=== PATIENT | male | born 1955 | race Caucasian/White ===

== ENCOUNTER 2022-09-18 14:43 | Outpatient (REF) | payer MEDICARE, SELFPAY ==
[2022-09-18 15:11] LABS: Basophils Percent Auto 0.1 % (0-2); Hematocrit 42.6 % (42.0-52.0); Hemoglobin 14.3 g/dl (14.0-18.0); Imm Gran Abs Auto 0.09 X10*3/uL (0.00-0.03); Imm Gran Pct Auto 0.5 % (0.0-0.4); Lymphocytes Absolute Auto 0.3 X10*3/uL (1.2-4.9); Lymphocytes Percent Auto 1.8 % (20-40); MANUAL DIFF FLAG SCAN; Mean Corpuscular HGB Conc 33.6 g/dl (31.0-36.0); Mean Corpuscular Hemoglobin 29.7 pg (27.0-33.0); Mean Corpuscular Volume 88.4 fL (80.0-98.0); Mean Platelet Volume 9.8 fL (9.4-12.4); Monocytes Absolute Auto 1.2 X10*3/uL (0.1-1.2); Monocytes Percent Auto 6.9 % (2-11); Neutrophils Absolute Auto 15.8 x10*3/uL (2.0-8.3); Neutrophils Percent Auto 90.7 % (45-73); Platelet Count 165 X10*3/uL (160-400); Red Blood Count 4.82 X10*6/uL (4.60-5.80); Red Cell Distribution Width 13.9 % (11.0-16.0); SCAN SMEAR FLAG 1; White Blood Count 17.4 X10*3/uL (4.8-10.8)
[2022-09-18 15:37] LABS: SLIDE REVIEW VERIFIED
[2022-09-18 16:03] LABS: Alanine Aminotransferase 58 U/L (0-40); Alkaline Phosphatase 98 U/L (39-117); Anion Gap 15 (12-20); Aspartate Amino Transferase 43 U/L (5-37); Blood Urea Nitrogen 25 mg/dL (9-16); Calcium 8.6 mg/dL (8.4-10.2); Carbon Dioxide 22 mmol/L (22-29); Chloride 103 mmol/L (96-108); Estimated Glomerular Filt Rate 59; Glucose Random 237 mg/dL (60-115); Potassium 4.2 mmol/L (3.3-5.1); Sodium 136 mmol/L (135-145); Total Protein 6.1 g/dL (6.5-8.0)
== END 2022-09-18 14:44 | disposition home or self-care (01) ==
LOC: HO.MMNH3L 14:43
PROVIDERS: Visit Provider Family Medicine
DX: R50.9 Fever, unspecified (principal)
CPT/HCPCS: 36415; 80053; 85025; 87040

== ENCOUNTER 2022-09-18 15:17 | Outpatient (REF) | payer MEDICARE, SELFPAY ==
[2022-09-18 15:58] LABS: Appearance Urine Clear; Color Urine Dark Yellow; Glucose Urine UA Negative (Negative)
[2022-09-18 15:59] LABS: Leukocyte Esterase Urine Moderate (2+) (Negative); Nitrite Urine Negative (Negative); Specific Gravity - Urine 1.025 (1.005-1.025); UMIC TRIGGER UA YES; Urine Blood Trace (Negative); Urine Ketones Trace mg/dL (Negative); Urine Protein 30 (1+) mg/dL (Neg-Trace)
[2022-09-18 16:20] LABS: Bacteria Urine 2+ (None Seen); Hyaline Casts Urine 0-2 /LPF (0-2); RBC Urine 0-2 /HPF (0-2); WBC Urine >50 /HPF (0-5)
== END 2022-09-18 15:18 | disposition home or self-care (01) ==
LOC: HO.LNP 15:17
PROVIDERS: Visit Provider Family Medicine
DX: R50.9 Fever, unspecified (principal)
CPT/HCPCS: 81001; 87086; 87088; 87186

== ENCOUNTER 2022-09-21 07:53 | Outpatient (REF) | payer SELFPAY ==
[2022-09-21 08:00] LABS: MANUAL DIFF FLAG NO
[2022-09-21 08:13] LABS: Basophils Percent Auto 0.4 % (0-2); Eosinophils Absolute Auto 0.2 X10*3/uL (0.0-0.4); Hematocrit 42.1 % (42.0-52.0); Hemoglobin 13.8 g/dl (14.0-18.0); Imm Gran Abs Auto 0.14 X10*3/uL (0.00-0.03); Imm Gran Pct Auto 1.5 % (0.0-0.4); Lymphocytes Absolute Auto 1.2 X10*3/uL (1.2-4.9); Lymphocytes Percent Auto 12.6 % (20-40); Mean Corpuscular HGB Conc 32.8 g/dl (31.0-36.0); Mean Corpuscular Hemoglobin 29.4 pg (27.0-33.0); Mean Corpuscular Volume 89.6 fL (80.0-98.0); Mean Platelet Volume 10.5 fL (9.4-12.4); Monocytes Absolute Auto 1.3 X10*3/uL (0.1-1.2); Monocytes Percent Auto 14.2 % (2-11); Neutrophils Absolute Auto 6.4 x10*3/uL (2.0-8.3); Neutrophils Percent Auto 69.3 % (45-73); Platelet Count 174 X10*3/uL (160-400); Red Cell Distribution Width 13.7 % (11.0-16.0); White Blood Count 9.2 X10*3/uL (4.8-10.8)
[2022-09-21 08:32] LABS: Anion Gap 15 (12-20); Blood Urea Nitrogen 20 mg/dL (9-16); Calcium 8.6 mg/dL (8.4-10.2); Carbon Dioxide 23 mmol/L (22-29); Chloride 106 mmol/L (96-108); Estimated Glomerular Filt Rate > 60; Glucose Random 125 mg/dL (60-115); Potassium 3.8 mmol/L (3.3-5.1); Sodium 140 mmol/L (135-145)
[2022-09-21 08:55] LABS: Vitamin D 25-OH Total 19.4 ng/mL (>30)
== END 2022-09-21 07:54 | disposition home or self-care (01) ==
LOC: HO.MMNH3L 07:53
PROVIDERS: Visit Provider Family Medicine
DX: J44.9 Chronic obstructive pulmonary disease, unspecified (principal); E46 Unspecified protein-calorie malnutrition; E11.9 Type 2 diabetes mellitus without complications
CPT/HCPCS: 36415; 80048; 82306; 85025

== ENCOUNTER 2023-06-04 19:58 | Outpatient (REF) | payer SELFPAY | END 2023-06-04 19:59 | disposition home or self-care (01) | LOC: HO.MMNH3L 19:58 | PROVIDERS: Visit Provider Family Medicine | DX: R50.9 Fever, unspecified (principal) | CPT/HCPCS: 87070 ==

== ENCOUNTER 2023-08-30 06:29 | Outpatient (REF) | payer MEDICARE, MEDICAID, SELFPAY ==
[2023-08-30 06:32] LABS: MANUAL DIFF FLAG NO
[2023-08-30 07:31] LABS: Basophils Percent Auto 0.4 % (0-2); Eosinophils Absolute Auto 0.4 X10*3/uL (0.0-0.4); Eosinophils Percent Auto 4.2 % (0-4); Hematocrit 42.7 % (42.0-52.0); Hemoglobin 14.2 g/dl (14.0-18.0); Imm Gran Abs Auto 0.05 X10*3/uL (0.00-0.03); Imm Gran Pct Auto 0.5 % (0.0-0.4); Lymphocytes Absolute Auto 1.7 X10*3/uL (1.2-4.9); Lymphocytes Percent Auto 17.4 % (20-40); Mean Corpuscular HGB Conc 33.3 g/dl (31.0-36.0); Mean Corpuscular Hemoglobin 30.1 pg (27.0-33.0); Mean Corpuscular Volume 90.5 fL (80.0-98.0); Mean Platelet Volume 9.9 fL (9.4-12.4); Monocytes Absolute Auto 0.8 X10*3/uL (0.1-1.2); Monocytes Percent Auto 8.7 % (2-11); Neutrophils Absolute Auto 6.5 x10*3/uL (2.0-8.3); Neutrophils Percent Auto 68.8 % (45-73); Platelet Count 181 X10*3/uL (160-400); Red Blood Count 4.72 X10*6/uL (4.60-5.80); Red Cell Distribution Width 12.7 % (11.0-16.0); White Blood Count 9.5 X10*3/uL (4.8-10.8)
[2023-08-30 07:44] LABS: Alanine Aminotransferase 12 U/L (0-40); Albumin Level 3.2 g/dL (3.5-5.0); Alkaline Phosphatase 60 U/L (39-117); Anion Gap 11 (12-20); Aspartate Amino Transferase 15 U/L (5-37); Bilirubin Total 0.5 mg/dL (0.0-1.0); Blood Urea Nitrogen 14 mg/dL (9-16); Carbon Dioxide 23 mmol/L (22-29); Chloride 109 mmol/L (96-108); Estimated Glomerular Filt Rate > 60; Glucose Random 93 mg/dL (60-115); Potassium 3.9 mmol/L (3.3-5.1); Sodium 139 mmol/L (135-145); Total Protein 6.3 g/dL (6.5-8.0)
[2023-08-30 07:49] LABS: Estimated Average Glucose 103 mg/dL; Hemoglobin A1c % 5.2 % (<6.0)
[2023-08-30 07:53] LABS: Thyroid Stimulating Hormone 1.29 uIU/mL (0.32-4.0)
== END 2023-08-30 06:30 | disposition home or self-care (01) ==
LOC: HO.MMNH3L 06:29
PROVIDERS: Visit Provider Family Medicine
DX: I10 Essential (primary) hypertension (principal); N40.0 Benign prostatic hyperplasia without lower urinary tract symptoms; E78.5 Hyperlipidemia, unspecified; E11.9 Type 2 diabetes mellitus without complications
CPT/HCPCS: 36415; 80053; 83036; 84443; 85025

== ENCOUNTER 2023-09-20 09:32 | Day surgery (SDC) | payer MEDICARE, MEDICAID, SELFPAY ==
--- NOTE | ~2023-09-20 | FL_ITS ---
Fluoroscopic lumbar puncture Indication: Gait instability. Neurologist requests large volume lumbar puncture Risks and benefits and possible complications were discussed with the patient and the consent form was signed. Patient was placed prone on the fluoroscopy table. The back was prepped and draped in routine sterile fashion. Betadine was used as a skin antiseptic. Utilizing fluoroscopic guidance, the L2-3 level was accessed with a 22 gauge Ollie spinal needle and clear CSF fluid obtained. Opening pressure was unable to be obtained due to the low pressure. With Valsalva movements, the pressure would increase to 4 cm H2O and immediately drop. 3cc of fluid was sent for analysis. . Additional fluid could not be removed due to patient's discomfort lying prone or in the left lateral decubitus position. The needle was removed without immediate complications. Total fluoroscopy time: 1.0 min FL/FL guided lumbar puncture LP Impression: Fluoroscopic lumbar puncture. Opening pressure could not be obtained due to low pressure. On the lateral fluoroscopic view of the spine, there appears to be a high-grade stenosis at the current L2-L3 level and/or higher at the L1-L2 level. An MRI of the lumbar spine could be considered for further evaluation. This procedure was performed by Dajuan Azevedo PA-C and supervised by Dr. Aden.
[2023-09-20 09:51] VITALS: BMI 34.9
[2023-09-20 10:13] LABS: INTERNATIONAL NORM RATIO 1.1 (0.9-1.1); Prothrombin Time 13.5 SEC (11.1-13.3)
[2023-09-20 10:16] LABS: Partial Thromboplastin Time 28.6 SEC (26.0-36.4)
[2023-09-20 10:23] LABS: Glucose, Whole Blood 177 mg/dL (60-115)
[2023-09-20 12:11] VITALS: BP 134/78; PULSE 60; RESP 18; TEMP 36.1; O2SAT 97
[2023-09-20] MEDS: Acetaminophen 325 MG TABLET 650 MG PO (12:29)
[2023-09-20 12:41] VITALS: BP 128/73; PULSE 60; RESP 18; O2SAT 99
[2023-09-20 12:44] LABS: CSF Appearance Clear, Colorless; CSF Tube # 2
[2023-09-20 13:10] LABS: Glucose CSF 63 mg/dL
[2023-09-20 13:11] VITALS: BP 119/63; PULSE 62; RESP 18; O2SAT 99
[2023-09-20 13:39] LABS: Appearance CSF CLEAR; CSF Tube # 2; Color CSF COLORLESS
[2023-09-20 13:46] LABS: Red Blood Cell CSF 13 MM*3; White Blood Cell CSF 10 MM*3
[2023-09-20 13:48] LABS: CSF Monos 13 %; Lymphocytes CSF 87 %
== END 2023-09-20 14:02 | disposition home or self-care (01) ==
PROVIDERS: Physician Assistant Surgical; Psychiatry & Neurology Neurology; PCP Family Medicine; Visit Provider Student in an Organized Health Care Education/Training Program
PROC: 009U3ZZ Drainage of Spinal Canal, Percutaneous Approach (ICD-10-PCS; CPT 62270; principal; 2023-09-20 11:00)
DX: G91.2 (Idiopathic) normal pressure hydrocephalus (principal); R26.89 Other abnormalities of gait and mobility; I10 Essential (primary) hypertension; E11.9 Type 2 diabetes mellitus without complications; G62.9 Polyneuropathy, unspecified; M19.90 Unspecified osteoarthritis, unspecified site; Z79.84 Long term (current) use of oral hypoglycemic drugs; Z79.899 Other long term (current) drug therapy; Z98.890 Other specified postprocedural states
CPT/HCPCS: 36415; 62328; 82945; 82947; 84157; 85610; 85730; 87015; 87070; 87205; 89051

== ENCOUNTER → 2023-09-20 11:00 | Outpatient (BNV) | payer MEDICARE, MEDICAID, SELFPAY | PROVIDERS: PCP Family Medicine; Visit Provider Radiology Diagnostic Radiology | DX: R27.0 Ataxia, unspecified (principal) | CPT/HCPCS: 62328 ==

== ENCOUNTER 2023-11-11 13:43 | Outpatient (REF) | payer MEDICARE, MEDICAID, SELFPAY ==
--- NOTE | ~2023-11-11 | MR_ITS ---
EXAMINATION: MR LUMBAR SPINE WITHOUT AND WITH CONTRAST CLINICAL INFORMATION: Spinal stenosis. COMPARISON: None available. TECHNIQUE: MRI of the lumbar spine was obtained using routine sequences without and following the administration of 10 mL of Gadavist intravenous contrast. FINDINGS: Mild left convex curvature of the lumbar spine. Partial straightening of the normal lumbar lordosis. Mild degenerative stepwise retrolisthesis of L2-S1. Advanced degenerative disc disease at L3-L4 and L4-L5. Moderate degenerative disc disease from L1-L3 and at L5-S1. Associated mixed Modic type discogenic and plate changes including mild Modic type I discogenic edema from L4-S1. No additional suspicious marrow edema. Schmorl's node in the inferior endplate of L1. Otherwise, the vertebral body heights are largely maintained. The conus medullaris terminates at the level of L1. The distal spinal cord is normal in appearance. No abnormal contrast enhancement. Changes of right-sided L3-L4 hemilaminectomy. Moderate subcutaneous edema within the posterior soft tissues the back below the level of T12. No additional significant abnormalities of the paraspinal musculature. Limited evaluation of the intra-abdominal structures without significant abnormalities. The abdominal aorta is of normal contour and caliber. AXIAL SPINAL LEVELS: L1-L2: Shallow diffuse disc bulge. There is mild bilateral facet joint arthropathy. There is no neural foraminal stenosis. There is no spinal canal stenosis. L2-L3: Mild diffuse disc bulge with posterior osseous ridging. There is moderate bilateral facet joint arthropathy. There is mild left and no right neural foraminal stenosis. There is no spinal canal stenosis. L3-L4: Moderate diffuse disc bulge with posterior osseous ridging and superimposed central disc extrusion with inferior migration. There is moderate bilateral facet joint arthropathy. There is moderate bilateral neural foraminal stenosis. Posterior decompression. There is stenosis of the subarticular zones with no overt spinal canal stenosis centrally. L4-L5: Mild diffuse disc bulge with posterior osseous ridging and superimposed right subarticular disc protrusion. There is severe right and moderate left facet joint arthropathy. There is moderate to severe bilateral neural foraminal stenosis. There is stenosis of the right worse than left subarticular zones with no overt spinal canal stenosis centrally. L5-S1: Moderate diffuse disc bulge with posterior osseous ridging and superimposed left subarticular/foraminal disc protrusion. There is moderate bilateral facet joint arthropathy. There is severe left worse than right neural foraminal stenosis. There is narrowing of the subarticular zones with no overt spinal canal stenosis centrally. MR/MR lumbar spine wo/w con IMPRESSION: Moderate multilevel degenerative spondyloarthropathy of the lumbar spine as described in detail above. Most notably, there are narrowing/stenoses of the subarticular zones and moderate to severe neural foraminal stenoses from L3-S1. No overt spinal canal stenosis centrally.
[2023-11-11] MEDS: gadobutroL 10 ML VIAL IVPUSH (15:00)
== END 2023-11-11 13:44 | disposition home or self-care (01) ==
LOC: HO.MRI 13:43
PROVIDERS: Visit Provider Psychiatry & Neurology Neurology
DX: M48.061 Spinal stenosis, lumbar region without neurogenic claudication (principal)
CPT/HCPCS: 72158; A9585

== ENCOUNTER 2023-12-15 12:40 | Outpatient (REF) | payer MEDICARE, MEDICAID, SELFPAY ==
[2023-12-15 14:33] LABS: Erythrocyte Sedimentation Rate 10 MM/HR (0-15)
[2023-12-16 07:54] LABS: Syphilis Screen Nonreactive (Nonreactive)
[2023-12-16 17:13] LABS: IgA 321 mg/dL (70-320); IgG 1433 mg/dL (600-1540); IgM 136 mg/dL (50-300)
[2023-12-16 19:23] LABS: Lyme Abs Screen <0.90 index
== END 2023-12-15 12:41 | disposition home or self-care (01) ==
LOC: HO.LAB 12:40
PROVIDERS: Visit Provider Psychiatry & Neurology Neurology
DX: G62.9 Polyneuropathy, unspecified (principal)
CPT/HCPCS: 36415; 82784; 85652; 86617; 86618; 86780

== ENCOUNTER 2024-06-15 05:51 | Outpatient (REF) | payer MEDICARE, MEDICAID, SELFPAY ==
[2024-06-15 05:55] LABS: MANUAL DIFF FLAG NO
[2024-06-15 06:19] LABS: Basophils Percent Auto 0.3 % (0-2); Eosinophils Absolute Auto 0.1 X10*3/uL (0.0-0.4); Eosinophils Percent Auto 0.8 % (0-4); Hematocrit 38.3 % (42.0-52.0); Hemoglobin 13.5 g/dl (14.0-18.0); Imm Gran Abs Auto 0.16 X10*3/uL (0.00-0.03); Imm Gran Pct Auto 1.6 % (0.0-0.4); Lymphocytes Absolute Auto 1.9 X10*3/uL (1.2-4.9); Lymphocytes Percent Auto 19.2 % (20-40); Mean Corpuscular HGB Conc 35.2 g/dl (31.0-36.0); Mean Corpuscular Hemoglobin 31.8 pg (27.0-33.0); Mean Corpuscular Volume 90.3 fL (80.0-98.0); Mean Platelet Volume 9.1 fL (9.4-12.4); Monocytes Absolute Auto 0.8 X10*3/uL (0.1-1.2); Monocytes Percent Auto 8.3 % (2-11); Neutrophils Percent Auto 69.8 % (45-73); Platelet Count 157 X10*3/uL (160-400); Red Blood Count 4.24 X10*6/uL (4.60-5.80); Red Cell Distribution Width 13.2 % (11.0-16.0)
[2024-06-15 06:41] LABS: Anion Gap 11 (12-20); Blood Urea Nitrogen 16 mg/dL (9-16); Calcium 9.3 mg/dL (8.4-10.2); Carbon Dioxide 26 mmol/L (22-29); Chloride 105 mmol/L (96-108); Estimated Glomerular Filt Rate > 60; Glucose Random 127 mg/dL (60-115); Sodium 138 mmol/L (135-145)
[2024-06-15 07:28] LABS: Estimated Average Glucose 169 mg/dL; Hemoglobin A1c % 7.5 % (<6.0)
== END 2024-06-15 05:52 | disposition home or self-care (01) ==
LOC: HO.MMNH3L 05:51
PROVIDERS: Visit Provider Family Medicine
DX: Z13.1 Encounter for screening for diabetes mellitus (principal); J44.9 Chronic obstructive pulmonary disease, unspecified
CPT/HCPCS: 36415; 80048; 83036; 85025

== ENCOUNTER 2024-07-28 12:30 | Outpatient (RCR) | payer MEDICARE, MEDICAID, SELFPAY ==
[2024-07-24] VITALS (11 sets, daily range): BP systolic 107–123; BP diastolic 63–77; PULSE 82–105; RESP 18–20; TEMP 36.9; O2SAT 98
[2024-07-24] MEDS: Immune Globulin 10% Gammagard 200 ML IV ×2 (08:44→10:15)
--- NOTE | 2024-07-24 08:52 | HO.INF ---
At 8:40 am - [facility]. SPOKE WITH HEATHER- NURSE- INFORMED PATIENT WAS GOING TO BE HERE APPROX- 3HRS AND WE NEEDED COPIES OF HIS DIET, MEDICATIONS AND ANY BLOOD SUGARS TO BE DONE. HEATHER STATES WILL FAX INFORMATION OVER.
--- NOTE | 2024-07-24 12:31 | HO.INF ---
12:10PM- [facility] ARRIVED TO BRING PATIENT TO [facility]. MULTIPLE CALLS TO [facility] TO GIVE REPORT NO ANSWER AT THIS TIME.
--- NOTE | 2024-07-24 13:11 | HO.INF ---
13:10PM- RETURN CALL FROM HEATHER FROM [facility]- REPORT GIVEN. SHE STATED PATIENT HAS SECURED A RIDE FOR THE NEXT 4 DAYS.
[2024-07-25] VITALS (8 sets, daily range): BP systolic 111–139; BP diastolic 55–82; PULSE 63–74; RESP 18–20; TEMP 36.3; O2SAT 98
[2024-07-25] MEDS: Immune Globulin 10% Gammagard 200 ML IV ×2 (08:20→09:48)
--- NOTE | 2024-07-25 13:10 | HO.INF ---
pt is still waiting for transportation to arrive to take him back to [facility]. many, multiple calls have been made to [facility] and spoken with multiple nurses and director including poonam about transportation back. we have been placed on hold several times, have been told they will call back with transportation information. no calls ever received. pt infusion has been completed since approx 1040am and has been waiting patiently. [facility] called once again and we were told pt has a black pickler arranged for 1300. it is now 1310 and no sign of any black pickler.
--- NOTE | 2024-07-25 13:32 | HO.INF ---
spoke with rhett at [facility]. states pt is to be picked up shortly . no specific time given. pt made aware and has remained calm and understanding.
--- NOTE | 2024-07-25 14:31 | HO.INF ---
pt was picked up by [facility]
[2024-07-26] VITALS (7 sets, daily range): BP systolic 94–109; BP diastolic 56–65; PULSE 65–73; RESP 20; TEMP 36.6; O2SAT 97
[2024-07-26] MEDS: Immune Globulin 10% Gammagard 200 ML IV ×2 (08:10→09:39)
[2024-07-27] VITALS (11 sets, daily range): BP systolic 100–130; BP diastolic 59–82; PULSE 71–101; RESP 14–20; TEMP 36.4; O2SAT 98
[2024-07-27] MEDS: Immune Globulin 10% Gammagard 200 ML IV ×2 (08:05→09:36)
[2024-07-28 12:30] VITALS: BP 105/75; PULSE 84; RESP 18; TEMP 37; O2SAT 96
[2024-07-28] MEDS: Immune Globulin 10% Gammagard 200 ML IV ×2 (12:40→14:06)
[2024-07-28 13:11] VITALS: BP 116/74; PULSE 91
[2024-07-28 13:25] VITALS: BP 115/72; PULSE 86; RESP 20
[2024-07-28 13:40] VITALS: BP 111/75; PULSE 75; RESP 20
[2024-07-28 14:10] VITALS: BP 124/76; PULSE 82
== END 2024-07-28 15:12 | disposition skilled nursing facility (03) ==
LOC: HO.INF 12:30
PROVIDERS: Visit Provider Psychiatry & Neurology Neurology
DX: G61.81 Chronic inflammatory demyelinating polyneuritis (principal)
CPT/HCPCS: 96365; 96366; J1569

== ENCOUNTER 2024-12-14 08:16 | Outpatient (REF) | payer MEDICARE, MEDICAID, SELFPAY ==
[2024-12-14 10:28] LABS: CDiff Gene PCR NEGATIVE (Negative)
== END 2024-12-14 08:17 | disposition home or self-care (01) ==
LOC: HO.MMNH3L 08:16
PROVIDERS: Visit Provider Family Medicine
DX: R19.5 Other fecal abnormalities (principal)
CPT/HCPCS: 87493

== ENCOUNTER 2024-12-15 05:43 | Outpatient (REF) | payer MEDICARE, MEDICAID, SELFPAY ==
[2024-12-15 06:26] LABS: Alanine Aminotransferase < 6 U/L (0-40); Albumin Level 2.6 g/dL (3.5-5.0); Alkaline Phosphatase 55 U/L (39-117); Anion Gap 12 (12-20); Aspartate Amino Transferase 18 U/L (5-37); Bilirubin Total 0.5 mg/dL (0.0-1.0); Blood Urea Nitrogen 13 mg/dL (9-16); Calcium 8.7 mg/dL (8.4-10.2); Carbon Dioxide 17 mmol/L (22-29); Chloride 112 mmol/L (96-108); Estimated Glomerular Filt Rate > 60; Glucose Random 78 mg/dL (60-115); Potassium 3.3 mmol/L (3.3-5.1); Sodium 138 mmol/L (135-145); Total Protein 6.2 g/dL (6.5-8.0)
== END 2024-12-15 05:44 | disposition home or self-care (01) ==
LOC: HO.MMNH3L 05:43
PROVIDERS: Visit Provider Family Medicine
DX: E86.0 Dehydration (principal)
CPT/HCPCS: 36415; 80053

== ENCOUNTER 2024-12-16 11:46 | Outpatient (REF) | payer MEDICARE, MEDICAID, SELFPAY ==
[2024-12-16 13:33] LABS: Adenovirus PCR Not Detected (Not Detect.); Bordetella parapertussis PCR Not Detected (Not Detect.); Bordetella pertussis PCR Not Detected (Not Detect.); Chlamydia pneumoniae PCR Not Detected (Not Detect.); Coronavirus 229E PCR Not Detected (Not Detect.); Coronavirus HKU1 PCR Not Detected (Not Detect.); Coronavirus NL63 PCR Not Detected (Not Detect.); Coronavirus OC43 PCR Not Detected (Not Detect.); Human metapneumovirus PCR Not Detected (Not Detect.); Influenza A PCR Not Detected (Not Detect.); Influenza B PCR Not Detected (Not Detect.); Mycoplasma pneumoniae PCR Not Detected (Not Detect.); Parainfluenza 1 PCR Not Detected (Not Detect.); Parainfluenza 2 PCR Not Detected (Not Detect.); Parainfluenza 3 PCR Not Detected (Not Detect.); Parainfluenza 4 PCR Not Detected (Not Detect.); RSV PCR Not Detected (Not Detect.); Rhino/Enterovirus PCR Not Detected (Not Detect.)
[2024-12-16 14:56] LABS: SARS-CoV-2 PCR Not Detected (Not Detect.)
== END 2024-12-16 11:47 | disposition home or self-care (01) ==
LOC: HO.MMNH3L 11:46
PROVIDERS: Visit Provider Hospitalist
DX: Z13.89 Encounter for screening for other disorder (principal); Z86.16 Personal history of COVID-19
CPT/HCPCS: 87633

== ENCOUNTER 2024-12-25 06:15 | Outpatient (REF) | payer MEDICARE, MEDICAID, SELFPAY ==
[2024-12-25 06:17] LABS: MANUAL DIFF FLAG NO
[2024-12-25 06:44] LABS: Basophils Absolute Auto 0.1 X10*3/uL (0.0-0.2); Basophils Percent Auto 0.4 % (0-2); Eosinophils Absolute Auto 0.2 X10*3/uL (0.0-0.4); Eosinophils Percent Auto 1.5 % (0-4); Hematocrit 39.2 % (42.0-52.0); Imm Gran Abs Auto 0.25 X10*3/uL (0.00-0.03); Imm Gran Pct Auto 1.6 % (0.0-0.4); Lymphocytes Absolute Auto 1.7 X10*3/uL (1.2-4.9); Lymphocytes Percent Auto 11.1 % (20-40); Mean Corpuscular HGB Conc 33.2 g/dl (31.0-36.0); Mean Corpuscular Volume 90.5 fL (80.0-98.0); Mean Platelet Volume 8.6 fL (9.4-12.4); Monocytes Absolute Auto 1.2 X10*3/uL (0.1-1.2); Monocytes Percent Auto 7.6 % (2-11); Neutrophils Absolute Auto 11.8 x10*3/uL (2.0-8.3); Neutrophils Percent Auto 77.8 % (45-73); Platelet Count 321 X10*3/uL (160-400); Red Blood Count 4.33 X10*6/uL (4.60-5.80); Red Cell Distribution Width 15.1 % (11.0-16.0); White Blood Count 15.2 X10*3/uL (4.8-10.8)
[2024-12-25 07:11] LABS: Estimated Average Glucose 97 mg/dL; Hemoglobin A1C 105.6322 umol/L
[2024-12-25 07:28] LABS: Alanine Aminotransferase 6 U/L (0-40); Albumin Level 2.6 g/dL (3.5-5.0); Alkaline Phosphatase 50 U/L (39-117); Anion Gap 11 (12-20); Aspartate Amino Transferase 19 U/L (5-37); Bilirubin Total 0.4 mg/dL (0.0-1.0); Blood Urea Nitrogen 12 mg/dL (9-16); Calcium 8.8 mg/dL (8.4-10.2); Carbon Dioxide 21 mmol/L (22-29); Chloride 113 mmol/L (96-108); Estimated Glomerular Filt Rate > 60; Glucose Random 67 mg/dL (60-115); Potassium 3.3 mmol/L (3.3-5.1); Sodium 142 mmol/L (135-145); Total Protein 5.8 g/dL (6.5-8.0)
== END 2024-12-25 06:16 | disposition home or self-care (01) ==
LOC: HO.MMNH3L 06:15
PROVIDERS: Visit Provider Internal Medicine
DX: E11.9 Type 2 diabetes mellitus without complications (principal)
CPT/HCPCS: 36415; 80053; 83036; 84443; 85025

== ENCOUNTER 2025-05-30 05:29 | Outpatient (REF) | payer MEDICARE, MEDICAID, SELFPAY ==
[2025-05-30 05:31] LABS: MANUAL DIFF FLAG NO
[2025-05-30 05:59] LABS: Hematocrit 34.5 % (42.0-52.0); Hemoglobin 11.8 g/dl (14.0-18.0); Imm Gran Abs Auto 0.05 X10*3/uL (0.00-0.03); Imm Gran Pct Auto 0.5 % (0.0-0.4); Lymphocytes Absolute Auto 1.7 X10*3/uL (1.2-4.9); Mean Corpuscular HGB Conc 34.2 g/dl (31.0-36.0); Mean Corpuscular Hemoglobin 30.8 pg (27.0-33.0); Mean Corpuscular Volume 90.1 fL (80.0-98.0); NRBC Abs Auto 0.000 X10*3/uL (0.0-0.012); NRBC Pct Auto 0.0 /100WBC (0.0-0.2); Platelet Count 203 X10*3/uL (160-400); Red Blood Count 3.83 X10*6/uL (4.60-5.80); White Blood Count 10.8 X10*3/uL (4.8-10.8)
[2025-05-30 06:10] LABS: Alanine Aminotransferase 9 U/L (0-40); Albumin Level 3.1 g/dL (3.5-5.0); Alkaline Phosphatase 55 U/L (39-117); Anion Gap 10 (12-20); Aspartate Amino Transferase 25 U/L (5-37); Blood Urea Nitrogen 14 mg/dL (9-16); Calcium 8.7 mg/dL (8.4-10.2); Carbon Dioxide 24 mmol/L (22-29); Chloride 112 mmol/L (96-108); Estimated Glomerular Filt Rate > 60; Potassium 3.9 mmol/L (3.3-5.1); Sodium 142 mmol/L (135-145); Total Protein 5.8 g/dL (6.5-8.0)
[2025-05-30 06:26] LABS: Thyroid Stimulating Hormone 1.52 uIU/mL (0.32-4.0)
[2025-05-30 07:10] LABS: Hemoglobin A1C 92.1015 umol/L; Total Hemoglobin (HGBA1C) 3174.7690 umol/L
== END 2025-05-30 05:30 | disposition home or self-care (01) ==
LOC: HO.MMNH3L 05:29
PROVIDERS: Visit Provider Student in an Organized Health Care Education/Training Program
DX: I10 Essential (primary) hypertension (principal); E11.9 Type 2 diabetes mellitus without complications
CPT/HCPCS: 36415; 80053; 83036; 84443; 85025

== ENCOUNTER 2025-06-23 11:17 | Outpatient (REF) | payer MEDICARE, MEDICAID, SELFPAY ==
--- OUTSIDE RECORDS SUMMARY | 2025-06-23 11:28 | XMS_ITS | Encounter Summary ---
Author Organization [facility] Address [address] [place] [address] Phone Care Team Providers Care Esl Tutor Name Role Phone Gabriella Polo MD Primary Care Provider Devin Balbuena DO Unavailable [phone] Maria M Kaur SPEECH AND LANGUAGE SPECIALIST Unavailable [phone] Encounter Details Date Type Department Care Team (Late st Contact Info) Description 07/07/2021 Procedure Pass [facility] Endoscopy Admitting Dept Virtual Department [address] [place] [address] Social History Tobacco Use Types Packs/Day Years Used Date Smoking Tobacco: Never Smokeless Tobacco: Never Alcohol Use Standard Drinks/Week Comments Yes 0 (1 standard drink = 0.6 oz pur e alcohol) Sex and Gender Information Value Date Recorded Sex Assigned at Male 12/29/2018 9:53 PM EST Legal Sex Male 9:38 PM EST Gender Identity Male 12/29/2018 9:53 PM EST Sexual Orientation Straight 12/29/2018 9: 53 PM EST documented as of this encounter Plan of Treatment Not on file documented as of this encounter Visit Diagnoses Not on filedocumented in this encounter Care Teams Esl Tutor Relationship Specialty Start Date End Date Gabriella Polo MD [address] [place] [address] PCP - General 12/29/18 Devin Balbuena DO [address] [place] [address] [email or web address] Primary Oncologist Hematology and Oncology 05/12/21 Maria M Kaur FNP [address] [place] [address] [email or web address] Nurse Practitioner Hematology and Oncology 05/23/21 documented as of this encounter Additional Source Comments The information contained in this document represents components of the legal health record. It is not the complete legal health record.[facility]
--- OUTSIDE RECORDS SUMMARY | 2025-06-23 11:28 | XMS_ITS | Encounter Summary ---
Author Organization [facility] Address [address] [place] [address] [place] [address] Phone Care Team Providers Care Compliance Testing Analyst Name Role Phone Gabriella Polo MD Primary Care Provider Devin Balbuena DO Unavailable Maria M Kaur OPERATOR SPECIALIST COMMUNICATIONS Unavailable [phone] Encounter Details Date Type Department Care Team (Latest Contact Info) Description 04/04/2021 Transcribe Orders Virtual Department [address] [place] [phone] Kevin Russell MD [address] [place] [address], [address] [place] [address] [email or web address] Cerebrovascular accident (CVA), unspecified mechanism (Primary Dx); Chest pain, unspecified type Social History Tobacco Use Types Packs/Day Years [...] on file documented as of this encounter Results * ECG 12-LEAD (04/10/2021 11:38 AM EDT) Ventricular Rate EKG/MIN 86 BPM [facility] Atrial Rate 86 BPM [facility] IA Interval 138 ms [facility] QRS Duration 66 ms [facility] QT Interval 368 ms [facility] QTC Interval 440 ms [facility] P [place] 40 degrees [facility] R Wave [place] -4 degrees [facility] T Wave [place] 98 degrees [facility] 04/10/2021 11:3 8 AM EDT 04/10/2021 4:02 PM EDT Narrative [facility] - 04/10/2021 4:02 PM EDT Sinus rhythm with frequent Premature ventricular complexes No previous ECGs available Confirmed by HELGA ALVARENGA MD ([id number]) on 04/10/2021 4:02:51 PM us Kevin Russell MD ECG ORDERABLES Final Result [facility] documented in this encounter Visit Diagnoses Diagnosis Cerebrovascular accident (CVA), unspecified mechanism- Primary Chest pain, unspecified type Cerebrovascular accident (CVA), unspecified mechanism Chest pain, unspecified type documented in this encounter Care Teams Compliance Testing Analyst Relationship Specialty Start Date End Date Gabriella Polo MD [address] [place] [address] PCP - General 12/29/18 Devin Balbuena DO [address] [place] [address] [email or web address] Primary Oncologist Hematology and Oncology 05/12/21 Maria M Kaur FNP [address] [place] [address] [email or web address] Nurse Practitioner Hematology and Oncology 05/23/21 documented as of this encounter Additional Source Comments The information contained in this document represents components of the legal health record. It is not the complete legal health record.[facility]
--- OUTSIDE RECORDS SUMMARY | 2025-06-23 11:28 | XMS_ITS | Encounter Summary ---
Author Organization [facility] Address [address] [facility] [address] [place] [address] Phone Care Team Providers Care Ankle Patch Molder Name Role Phone Gabriella Polo MD Primary Care Provider Devin Balbuena DO Unavailable Maria M Kaur CAN REFORMING MACHINE OPERATOR Unavailable Encounter Details Date Type Department Care Team (Late st Contact Info) Description 06/18/2021 Transcribe Orders [facility] [address] [place] [phone] Devin Balbuena DO [address] [place] [address] [email or web address] Social History Tobacco Use Types Packs/Day Years [...] on filedocumented in this encounter Care Teams Ankle Patch Molder Relationship Specialty Start Date End Date Gabriella Polo MD [address] [place] [address] PCP - General 12/29/18 Devin Balbuena DO [address] [place] [address] [email or web address] Primary Oncologist Hematology and Oncology 05/12/21 Maria M Kaur FNP [address] [place] [address] [email or web address] Nurse Practitioner Hematology and Oncology 05/23/21 documented as of this encounter Additional Source Comments The information contained in this document represents components of the legal health record. It is not the complete legal health record.[facility]
--- OUTSIDE RECORDS SUMMARY | 2025-06-23 11:28 | XMS_ITS | Encounter Summary ---
Author Organization [facility] Address [address] [address] Phone Care Team Providers Care Manufacturing Analyst Name Role Phone Gabriella Polo MD Primary Care Provider Devin Balbuena DO Unavailable Maria M Kaur MEDICAL TECHNOLOGIST MICROBIOLOGY Unavailable Encounter Details Date Type Department Care Team (Late st Contact Info) Description 09/29/2021 Transcribe Orders [facility] [address] [place] [address] Rashid Fallon MD [address] [place] [address] [email or web address] Social History Tobacco Use Types Packs/Day Years [...] on filedocumented in this encounter Care Teams Manufacturing Analyst Relationship Specialty Start Date End Date Gabriella Polo MD [address] [place] [address] PCP - General 12/29/18 Devin Balbuena DO [address] [place] [address] [email or web address] Primary Oncologist Hematology and Oncology 05/12/21 Maria M Kaur FNP [address] [place] [address] [email or web address] Nurse Practitioner Hematology and Oncology 05/23/21 documented as of this encounter Additional Source Comments The information contained in this document represents components of the legal health record. It is not the complete legal health record.[facility]
--- OUTSIDE RECORDS SUMMARY | 2025-06-23 11:28 | XMS_ITS | Encounter Summary ---
Author Organization [facility] Address [address] [facility] [address] [place] [address] Phone Care Team Providers Care Edi Manager Name Role Phone Gabriella Polo MD Primary Care Provider Devin Balbuena DO Unavailable [phone] Maria M Kaur STEEL BARREL REAMER Unavailable [phone] Encounter Details Date Type Department Care Team (Late st Contact Info) Description 07/04/2021 Procedure Pass [facility] Ct Scan - [address] [address] Social History Tobacco Use Types Packs/Day Years [...] PM EST documented as of this encounter Functional Status * Calculated C-SSRS Risk Score (Lifetime/Recent) Answer Date of Assessment Author No Risk Indicated 07/04/2021 3:51 PM EDT Maranda Law RN * [place] Suicide Severity Rating Scale (Screener/Recent Self-Report) Question Answer Date of Assessment Author 1. Wish to be (Past 1 Month) No 07/04/2021 3:51 PM LEILANIT Praveena Nieves RN 2. Non-Specific Active Suicidal Thoughts (Past 1 Month) No 07/04/2021 3:51 PM Praveena Benavides RN 6. Suicidal Behavior (Lifetime) No 07/04/2021 3:51 PM Praveena Benavides RN documented as of this encounter Plan of Treatment Not on file documented as of this encounter Visit Diagnoses Not on filedocumented in this encounter Care Teams Edi Manager Relationship Specialty Start Date End Date Gabriella Polo MD [address] [place] [address] PCP - General 12/29/18 Devin Balbuena DO [address] [place] [address] [email or web address] Primary Oncologist Hematology and Oncology 05/12/21 Maria M Kaur FNP [address] [place] [phone] [email or web address] Nurse Practitioner Hematology and Oncology 05/23/21 documented as of this encounter Additional Source Comments The information contained in this document represents components of the legal health record. It is not the complete legal health record.[facility]
--- OUTSIDE RECORDS SUMMARY | 2025-06-23 11:28 | XMS_ITS | Clinical Summary ---
Author Organization [facility] Address [address] [place] [address] [place] [address] Phone Care Team Providers Care Professor Of Religious Studies Name Role Phone Gabriella Polo MD Primary Care Provider Devin Balbuena DO Unavailable [phone] Maria M Kaur CHIEF DRAFTER Unavailable [phone] Allergies No known active allergies Medications pravastatin sodium (PRAVASTATIN ORAL) Take 80 mg by mouth daily. Active LISINOPRIL ORAL Take 10 mg by mouth daily. Active GABAPENTIN, BULK, MISC Take 300 mg by mouth 3 (three) times a day. Active METOPROLOL SUCCINATE ORAL Take 25 mg by mouth daily. Active metformin HCl (METFORMIN ORAL) Take 500 mg by mouth 2 (two) times a day. Active naproxen (NAPROSYN) 500 MG tablet Take 1 tablet (500 mg total) by mouth 2 (two) times a day with meals for 5 doses. 5 tablet 07/08/2021 Active Active Problems Problem Noted Date Diagnosed Date Foot pain 07/07/2021 Assessment & Plan (07/07/2021 1:06 PM EDT): Uncertain etiology. Yesterday he complained of some pain involving the arch of the foot and plantar fascia. Today there is redness overlying the distal metatarsals and he has some tenderness to palpation of the first MTP joint. 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 The patient does not have resting hypoxemia though oximetry with walking should be checked. Etiology of the lung disease is unclear. There is no associated history suggestive of occupational exposures, hobbies, organic dust, nor family history or personal history suggestive of underlying rheumatic disorder. Radiographic appearance is NOT suggestive nor typical of idiopathic pulmonary fibrosis given the extent of changes without obvious fibrosis or honeycombing, though volume loss does suggest an element of chronicity. No cardiac abnormalities to explain his dyspnea. Bronchoscopy completed 07/07/2021 without obvious abnormalities. Results from BAL cell count and differentials, all cultures,, symptomatology, and transbronchial biopsy histo path all pending. RECOMMENDATION: Await additional serologies, including MPO antibody, IN-3 antibody, ANCA and anti-GBM antibody. Can be followed up as an outpatient. Would question about possible silent aspiration given asymmetry and location of changes. Await results of bronchoscopy, all of which can be follow-up as an outpatient. He will need outpatient PFTs and pulmonary follow-up which I will arrange. I suspect that his lung disease is indeed chronic, and suspect much of his symptoms are related to the excess effort required to ambulate with his severe hip pain. Recommendations will be passed on to Dr. Peralta, the covering hospitalist. Assessment & Plan (07/07/2021 1:03 PM EDT): CT scan of the chest concerning for pulmonary fibrosis and there are calcified lymph nodes suggesting prior granulomatous disease. He is maintaining oxygen saturations 95-97% on room air and reports mild dyspnea symptoms at home. 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 Rheumatoid factor is slightly elevated at 15.3. ESR normal range at 18. He was vaccinated for COVID-19 with Moderna x2 last spring --Awaiting bronchoscopy --Pending labs: GBM antibody, ANCA, proteinase 3 antibody, myeloperoxidase antibody, CCP IgG antibody, DARWIN --Further management depending on additional findings and input from pulmonology Type 2 diabetes mellitus wit hout complication, without long-term current use of insulin Assessment & Plan (07/07/2021 1:03 PM EDT): Blood sugar levels hovering in the low to upper 100s --Holding Metformin --Continue basal/bolus insulin Essential hypertension Assessment & Plan (07/07/2021 1:04 PM EDT): Home doses of lisinopril and metoprolol were confirmed with his pharmacy, [facility] in [place]. Reasonable control --Continue lisinopril and metoprolol per home regimen Osteoarthritis Assessment & Plan (07/06/2021 1:31 PM EDT): Due to have right hip replacement surgery in early July. Followed by an [facility] Reports recent fall at home triggering more hip pain and difficulty mobilizing --PT/OT --Takes gabapentin at home. Restarted per home regimen Hyperlipidemia Assessment & Plan (07/06/2021 1:33 PM EDT): He is on pravastatin --Continue per home regimen Immunizations Immunization Administration Dates Next Due COVID-19 (Pre-08/16) Moderna Vaccine, mRNA, PF 02/27/2021,01/30/2021 Influenza High-Dose Quadriva lent Preservative Free IM 07/08/2021(Deferred: Not Available From [employer]) Tdap 12/30/2018 Zoster live 01/12/2014 Social History Tobacco Use Types Packs/Day Years Used Date Smoking Tobacco: Never Smokeless Tobacco: Never Alcohol Use Standard Drinks/Week Comments Yes 0 (1 standard drink = 0.6 oz pur e alcohol) Education Answer Date Recorded Are you interested in more education? Not on manpreet e 02/19/2023 Are you concerned about learning? Not on file 02/19/2023 No 02/19/2023 No 02/19/2023 Digital Access Answer Date Recorded No 03/20/2023 No 03/20/2023 No 03/20/2023 Reliable internet access at home? Not on file 03/20/2023 Device with a working camera? Not on file Sex and Gender Information Value Date Recorded Sex Assigned at Male 12/29/2018 9:53 PM EST Legal Sex Male 9:38 PM EST Gender Identity Male 12/29/2018 9:53 PM EST Sexual Orientation Straight 12/29/2018 9: 53 PM EST Last Filed Vital Signs Vital Sign Reading Time Taken Comments Blood Pressure 113/70 07/08/2021 3:27 PM EDT Pulse 63 07/08/2021 3:27 PM EDT Temperature 36.4 C (97.5 F) 07/08/2021 3:27 PM EDT Respiratory Rate 20 07/08/2021 3:27 PM EDT Oxygen Saturation 98% 07/08/2021 3:27 PM EDT Inhaled Oxygen Concentration - - Weight 104.3 kg (230 lb) 07/04/2021 3:45 PM EDT Height 177.8 cm (5' 10 ) 07/04/2021 3:45 PM EDT Body Mass Index 33 07/04/2021 3:45 PM EDT Plan of Treatment Health Maintenance Due Date Last Done Comments BLOOD PRESSURE 1953 DEPRESSION SCREENING 1965 HEPATITIS C SCREENING 1971 LIPID PANEL 1971 PNEUMOCOCCAL VACCINES (50+ years) (1 of 2 - PCV) 1972 COLOGUARD 1998 COLONOSCOPY 1998 COLORECTAL CANCER SCREENING 1998 FIT TEST 1998 FOBT 1998 SIGMOIDOSCOPY 1998 VIRTUAL COLONOSCOPY 1998 RSV VACCINE (1 - Risk 60-74 years 1-dose series) 2013 ZOSTER VACCINES (2 of 3) 03/09/2014 01/12/2014 DIABETIC EYE EXAM 07/05/2021 HEMOGLOBIN A1C 01/02/2022 07/05/2021 CREATININE LEVEL 07/31/2022 07/31/2021, , 07/05/2021, Additional history exists POTASSIUM LEVEL 07/31/2022 07/31/2021, 06/25, 07/05/2021, Additional history exists COVID-19 VACCINE ( - season) 2024 02/27/2021, 01/30/2021 Adult Td,Tdap Booster 12/30/2028 12/30/2018 SMOKING STATUS SCREENING (Once After 26 Yrs) Completed 07/05/2021 HEPATITIS A VACCINES Aged Out No long er eligible based on patient's age to complete this topic HIB VACCINES Aged Out No longer eligi ble based on patient's age to complete this topic MENINGOCOCCAL VACCINES (ACWY) Aged Out No longer eligible based on patient's age to complete this topic MENINGOCOCCAL VACCINES (B) Aged Out N o longer eligible based on patient's age to complete this topic Medical Devices Not on file Procedures Procedure Name Priority Date/Time Associated Diagnosis Comments COMPREHENSIVE METABOLIC PANEL Routine 07/31/2021 6:00 AM EDT Weakness Routine lab draw HEMOGLOBIN A1C Routine 07/05/2021 5:25 AM EDT from Last 3 Months or Most Recently Relevant to Health Maintenance Results * (ABNORMAL) Comprehensive metabolic panel (07/31/2021 6:00 AM EDT) SODIUM 137 133 - 146 mmol/L [facility] POTASSIUM 4.4 3.3 - 5.1 mmol/L [facility] CHLORIDE 101 96 - 108 mmol/L [facility] CO2 25 21 - 35 mmol/L [facility] BUN 16 6 - 19 mg/dL [facility] CREATININE 0.90 0.5 - 1.5 mg/dL [facility] GLUCOSE 108(H) 70 - 99 mg/dL [facility] ALBUMIN 3.0(L) 3.9 - 4.8 g/dL [facility] TOTAL PROTEIN 5.7(L) 6.5 - 8.0 g/dL [facility] CALCIUM 8.9 8.4 - 10.3 mg/dL [facility] ALKALINE PHOSPHATASE 104 39 - 117 U/L [facility] TOTAL BILIRUBIN 0.3 0.0 - 1.2 mg/dL [facility] AST 24 0 - 37 U/L [facility] ALT 27 0 - 40 U/L [facility] GLOBULIN 2.7 1 - 4.8 g/dL [facility] EGFR 87 >59 mL/min/1.7 3m2 [facility] Comment:Estimated glomerular filtration rate calculated using the CKD-EPI equation. ANION GAP 15 10 - 20 mmol/L [facility] Blood 07/31/2021 6:00 AM EDT 07/31/2021 7:46 AM EDT us Jose Blanca MD LAB BLOOD ORDERABLES Final Resul t Performing Organization Address City/[facility]/ZIP Co de Phone Number [address] [address] * Hemoglobin A1c (07/05/2021 5:25 AM EDT) HEMOGLOBIN A1C 5.7 4.3 - 5.8 % [facility] Blood 07/05/2021 5:25 AM EDT 07/05/2021 6:03 AM EDT us Cezar Lyn DO LAB BLOOD ORDERABLES Final Re sult Performing Organization Address City/[facility]/ZIP Co de Phone Number [address] [address] from Last 3 Months or Most Recently Relevant to Health Maintenance Insurance [place] [id number] [facility] MEDICARE SUPPLEMENT MEDICARE PART A & B MEDICARE SUPPLEMENT MEDICARE PART A & B MEDICARE SUPPLEMENT MEDICARE PART A & B Member Subscriber Plan / Payer ( fective 2013-Present) Name:TiffTruong Member ID:[id number] Relation to Subscriber:Self Name:DomingoTruong christina Subscriber ID:[id number] Payer ID:[id number] Group ID:Not on file Type:Medicare Address: [place] [id number] [facility] MEDICARE SUPPLEMENT MEDICARE PART A & B [facility] MEDICARE SUPPLEMENT MEDICARE PART A & B [facility] MEDICARE SUPPLEMENT MEDICARE PART A & B Member Subscriber Plan / Payer (Ef fective 2013-Present) Name:Truong Matthew Member ID:[id number] Relation to Subscriber:Self Name:Truong Matthew Subscriber ID:[id number] Payer ID:[id number] Group ID:Not on file Type:Medicare Address: [place] [address] MEDICARE SUPPLEMENT MEDICARE PART A & B [facility] MEDICARE SUPPLEMENT MEDICARE PART A & B [facility] MEDICARE SUPPLEMENT Advance Directives For more information, please contact: [phone] (9AM - 5PM Devika/[facility], Wednesday-Wednesday) * Full Code (Latest Code Status on File) Date Activated Date Inactivated Comments 07/05/2021 2:19 AM Question Answer Comments Code Status Confirmed With: Patient Care Teams Professor Of Religious Studies Relationship Specialty Start Date End Date Gabriella Polo MD [address] [place] [address] PCP - General 12/29/18 Devin Balbuena DO [address] [place] [address] [email or web address] Primary Oncologist Hematology and Oncology 05/12/21 Maria M Kaur FNP [address] [place] [address] [email or web address] Nurse Practitioner Hematology and Oncology 05/23/21 Additional Source Comments The information contained in this document represents components of the legal health record. It is not the complete legal health record.[facility]
--- OUTSIDE RECORDS SUMMARY | 2025-06-23 11:28 | XMS_ITS | Encounter Summary ---
Author Organization [facility] Address [address] [place] [address] Phone Care Team Providers Care Electro Mechanical Solar Technician Name Role Phone Gabriella Polo MD Primary Care Provider Devin Balbuena DO Unavailable [phone] Maria M Kaur RN CLINICAL RESOURCE Unavailable [phone] Encounter Details Date Type Department Care Team (Late st Contact Info) Description 07/06/2021 Procedure Pass [facility] [address] [place] [address] Social History Tobacco Use Types Packs/Day Years [...] on filedocumented in this encounter Care Teams Electro Mechanical Solar Technician Relationship Specialty Start Date End Date Gabriella Polo MD [address] [place] [address] PCP - General 12/29/18 Devin Balbuena DO [address] [place] [address] [email or web address] Primary Oncologist Hematology and Oncology 05/12/21 Maria M Kaur FNP [address] [place], [place] [id number] [email or web address] Nurse Practitioner Hematology and Oncology 05/23/21 documented as of this encounter Additional Source Comments The information contained in this document represents components of the legal health record. It is not the complete legal health record.[facility]
--- OUTSIDE RECORDS SUMMARY | 2025-06-23 11:28 | XMS_ITS | Encounter Summary ---
Author Organization [facility] Address [address] [place] [address] Phone Care Team Providers Care Aquatics Manager Name Role Phone Gabriella Polo MD Primary Care Provider Devin Balbuena DO Unavailable [phone] Maria M Kaur KAI WHAKARURUHAU Unavailable [phone] Encounter Details Date Type Department Care Team (Late st Contact Info) Description 03/18/2021 Procedure Pass [facility], [address] [address] Social History Tobacco Use Types Packs/Day Years [...] on filedocumented in this encounter Care Teams Aquatics Manager Relationship Specialty Start Date End Date Gabriella Polo MD [address] [place] [address] PCP - General 12/29/18 Devin Balbuena DO [address] [place] [address] [email or web address] Primary Oncologist Hematology and Oncology 05/12/21 Maria M Kaur FNP [address] [place] [address] [email or web address] Nurse Practitioner Hematology and Oncology 05/23/21 documented as of this encounter Additional Source Comments The information contained in this document represents components of the legal health record. It is not the complete legal health record.[facility]
--- OUTSIDE RECORDS SUMMARY | 2025-06-23 11:28 | XMS_ITS | Encounter Summary ---
Author Organization [facility] Address [address] [place] [address] Phone Care Team Providers Care Needle Control Cheniller Name Role Phone Gabriella Polo MD Primary Care Provider Devin Balbuena DO Unavailable [phone] Maria M Kaur TOOL AND EQUIPMENT RENTAL CLERK Unavailable [phone] Reason for Referral * MRI/CAT Scan - Closed Specialty Diagnoses / Procedures Referred By Juan Pablo tate Referred To Contact Radiology Diagnoses Left-sided weakness Ataxia Cerebrovascular accident (CVA), unspecified mechanism Procedures MRI Brain Kevin Russell MD Phone: tel: fax: [email or web address] Referral ID Status Reason Start Date Expiration Date Visits Re quested Visits Authorized [id number] Closed 03/18/2021 03/18/2022 1 1 Encounter Details Date Type Department Care Team (Latest Contact Info) Description 03/18/2021 Transcribe Orders Virtual Department [address] [place] [address] Kevin Russell MD [address] [place] [address], [address] [place], [place] [id number] [email or web address] TIA (transient ischemic attack) (Primary Dx); Left-sided weakness; Ataxia; Cerebrovascular accident (CVA), unspecified mechanism Social History Tobacco Use Types Packs/Day Years [...] documented as of this encounter Results * US Carotid Duplex Complete (Bilateral) (04/10/2021 2:57 PM EDT) Anatomical Region Laterality Modality Heart, Thoracic Vasculature, Neck Ultrasound 04/10/2021 3:46 PM EDT Impressions 04/10/2021 3:51 PM EDT No evidence of carotid artery stenosis. Minimal CCA intimal thickening bilaterally and some minor plaque at the left carotid bulb. Narrative 04/10/2021 3:51 PM EDT COMPARISON:None CAROTID ULTRASOUND FINDINGS: RIGHT: Peak external carotid artery: 118 cm/sec Peak vertebral: 38 cm/sec and antegrade Peak common carotid artery: 84 cm/sec Peak internal carotid artery: 104 cm/sec Carotid artery morphology: Minor intimal thickening in the CCA. No evidence of flow-limiting stenosis. Peak systolic ratio is normal. LEFT: Peak external carotid artery: 100 cm/sec Peak vertebral: 79 cm/sec and antegrade Peak common carotid artery: 103 cm/sec Peak internal carotid artery: 110 cm/sec Carotid artery morphology: Minor mixed atheroma at the bulb at the origin of the ECA. Minor intimal thickening and wall plaque. No evidence of stenosis. Peak systolic ratio is normal. Any stenosis measurement is relative to the distal ICA diameters. Procedure Note Josh Curtis MD - 04/10/2021 COMPARISON:None CAROTID ULTRASOUND FINDINGS: RIGHT: Peak external carotid artery: 118 cm/sec Peak vertebral: 38 cm/sec and antegrade Peak common carotid artery: 84 cm/sec Peak internal carotid artery: 104 cm/sec Carotid artery morphology: Minor intimal thickening in the CCA. Noevidence of flow-limiting stenosis. Peak systolic ratio is normal. LEFT: Peak external carotid artery: 100 cm/sec Peak vertebral: 79 cm/sec and antegrade Peak common carotid artery: 103 cm/sec Peak internal carotid artery: 110 cm/sec Carotid artery morphology: Minor mixed atheroma at the bulb at the originof the ECA. Minor intimal thickening and wall plaque. No evidence ofstenosis. Peak systolic ratio is normal. Any stenosis measurement is relative to the distal ICA diameters. IMPRESSION: No evidence of carotid artery stenosis. Minimal CCA intimal thickeningbilaterally and some minor plaque at the left carotid bulb. us Kevin Russell MD CV US NEUROVASCULAR Final Re sult * MRI BRAIN WITHOUT CONTRAST (04/10/2021 12:41 PM EDT) Anatomical Region Laterality Modality Head Magnetic Resonan ce 04/10/2021 12:4 6 PM EDT Impressions 04/10/2021 1:15 PM EDT No evidence of acute intracranial pathology. Findings consistent with minimal chronic small vessel ischemia. No other significant changes from CT 12/30/2018. Narrative 04/10/2021 1:15 PM EDT HISTORY: Left-sided weakness, ataxia. COMPARISON: CT brain 12/30/2018. TECHNIQUE: Exam performed on a 1.5 Nicole high-field MRI scanner. Axial T1, T2, T2*, T2 FLAIR and diffusion-weighted imaging with ADC map, sagittal T1 sequences were obtained. FINDINGS: No evidence of intracranial hemorrhage or acute infarcts. Traces of T2 hyperintense signal in the periventricular white matter consistent with minimal chronic small vessel ischemia. Previously demonstrated tiny hypodensity in the right thalamus on CT likely represents a perivascular space. Mild-moderately dilated ventricles, the appearance is stable from 12/30/2018. Frontal horns and measures approximately 4.9 cm transversely. Similar age-related volume loss. Normal flow-voids at the base of the skull. The paranasal sinuses and mastoid air cells are clear. Procedure Note aFdy Ponce MD - 04/10/2021 HISTORY: Left-sided weakness, ataxia. COMPARISON: CT brain 12/30/2018. TECHNIQUE: Exam performed on a 1.5 Nicole high-field MRI scanner. AxialT1, T2, T2*, T2 FLAIR and diffusion-weighted imaging with ADC map,sagittal T1 sequences were obtained. FINDINGS: No evidence of intracranial hemorrhage or acute infarcts. Traces of B9rysuwengerbr signal in the periventricular white matter consistent withminimal chronic small vessel ischemia. Previously demonstrated tinyhypodensity in the right thalamus on CT likely represents a perivascularspace. Mild-moderately dilated ventricles, the appearance is stable from12/30/2018. Frontal horns and measures approximately 4.9 cm transversely.Similar age-related volume loss. Normal flow-voids at the base of the skull. The paranasal sinuses and mastoid air cells are clear. IMPRESSION: No evidence of acute intracranial pathology. Findings consistent withminimal chronic small vessel ischemia. No other significant changes fromCT 12/30/2018. Kevin Russell MD IMG MR HEAD/NECK Final Resul t documented in this encounter Visit Diagnoses Diagnosis TIA (transient ischemic attack)- Primary Unspecified transient cerebral ischemia Left-sided weakness Ataxia Lack of coordination Cerebrovascular accident (CVA), unspecified mechanism Left-sided weakness Ataxia Lack of coordination Cerebrovascular accident (CVA), unspecified mechanism TIA (transient ischemic attack) Unspecified transient cerebral ischemia documented in this encounter Care Teams Needle Control Cheniller Relationship Specialty Start Date End Date Gabriella Polo MD [address] [place] [address] PCP - General 12/29/18 Devin Balbuena DO [address] [place] [address] [email or web address] Primary Oncologist Hematology and Oncology 05/12/21 Maria M Kaur FNP [address] [place] [phone] [email or web address] Nurse Practitioner Hematology and Oncology 05/23/21 documented as of this encounter Additional Source Comments The information contained in this document represents components of the legal health record. It is not the complete legal health record.[facility]
[2025-06-23 11:34] LABS: MANUAL DIFF FLAG NO
[2025-06-23 11:39] LABS: Hematocrit 38.9 % (42.0-52.0); Hemoglobin 13.1 g/dl (14.0-18.0); Imm Gran Abs Auto 0.06 X10*3/uL (0.00-0.03); Imm Gran Pct Auto 0.5 % (0.0-0.4); Lymphocytes Absolute Auto 1.2 X10*3/uL (1.2-4.9); Mean Corpuscular HGB Conc 33.7 g/dl (31.0-36.0); Mean Corpuscular Hemoglobin 30.9 pg (27.0-33.0); Mean Corpuscular Volume 91.7 fL (80.0-98.0); NRBC Abs Auto 0.000 X10*3/uL (0.0-0.012); NRBC Pct Auto 0.0 /100WBC (0.0-0.2); Platelet Count 197 X10*3/uL (160-400); Red Blood Count 4.24 X10*6/uL (4.60-5.80); White Blood Count 12.0 X10*3/uL (4.8-10.8)
[2025-06-23 11:47] LABS: Hemoglobin A1C 96.7410 umol/L; Total Hemoglobin (HGBA1C) 3394.7984 umol/L
[2025-06-23 11:56] LABS: Alanine Aminotransferase 8 U/L (0-40); Albumin Level 3.3 g/dL (3.5-5.0); Alkaline Phosphatase 66 U/L (39-117); Anion Gap 11 (12-20); Aspartate Amino Transferase 18 U/L (5-37); Blood Urea Nitrogen 14 mg/dL (9-16); Calcium 9.0 mg/dL (8.4-10.2); Carbon Dioxide 28 mmol/L (22-29); Chloride 108 mmol/L (96-108); Estimated Glomerular Filt Rate > 60; Potassium 4.1 mmol/L (3.3-5.1); Sodium 143 mmol/L (135-145); Total Protein 6.2 g/dL (6.5-8.0)
== END 2025-06-23 11:18 | disposition home or self-care (01) ==
LOC: HO.MMNH3L 11:17
PROVIDERS: Visit Provider Family Medicine
DX: Z13.1 Encounter for screening for diabetes mellitus (principal); I49.9 Cardiac arrhythmia, unspecified
CPT/HCPCS: 36415; 80053; 83036; 85025

== ENCOUNTER 2025-09-05 05:55 | Outpatient (REF) | payer MEDICARE, MEDICAID, SELFPAY ==
[2025-09-05 06:01] LABS: MANUAL DIFF FLAG NO
--- OUTSIDE RECORDS SUMMARY | 2025-09-05 06:01 | XMS_ITS | Encounter Summary ---
Author Organization [facility] Address [address] [place] [address] Phone Care Team Providers Care Carpenter Mine Name Role Phone Gabriella Polo MD Primary Care Provider Devin Balbuena DO Unavailable [phone] Maria M Kaur PHYSICAL THERAPY SUPERVISOR Unavailable [phone] Encounter Details Date Type Department Care Team (Late st Contact Info) Description 07/07/2021 Procedure Pass [facility] Endoscopy Admitting Dept Virtual Department [address] [place] [address] Social History Tobacco Use Types Packs/Day Years [...] on filedocumented in this encounter Care Teams Carpenter Mine Relationship Specialty Start Date End Date Gabriella Polo MD [address] [place] [address] PCP - General 12/29/18 Devin Balbuena DO [address] [place] [address] [email or web address] Primary Oncologist Hematology and Oncology 05/12/21 Maria M Kaur NP [address] [place] [address] [email or web address] Nurse Practitioner Hematology and Oncology 05/23/21 documented as of this encounter Additional Source Comments The information contained in this document represents components of the legal health record. It is not the complete legal health record.[facility]
--- OUTSIDE RECORDS SUMMARY | 2025-09-05 06:01 | XMS_ITS | Encounter Summary ---
Author Organization [facility] Address [address] [place] [address] Phone Care Team Providers Care Street Light Inspector Name Role Phone Gabriella Polo MD Primary Care Provider Devin Balbuena DO Unavailable [phone] Maria M Kaur BUSINESS INTEGRATION ANALYST Unavailable [phone] Encounter Details Date Type Department Care Team (Late st Contact Info) Description 07/06/2021 Procedure Pass [facility] [address] [place] [address] Social History Tobacco Use Types Packs/Day Years [...] on filedocumented in this encounter Care Teams Street Light Inspector Relationship Specialty Start Date End Date Gabriella Polo MD [address] [place] [address] PCP - General 12/29/18 Devin Balbuena DO [address] [place] [address] [email or web address] Primary Oncologist Hematology and Oncology 05/12/21 Maria M Kaur NP [facility] [place] [address] [email or web address] Nurse Practitioner Hematology and Oncology 05/23/21 documented as of this encounter Additional Source Comments The information contained in this document represents components of the legal health record. It is not the complete legal health record.[facility]
--- OUTSIDE RECORDS SUMMARY | 2025-09-05 06:01 | XMS_ITS | Encounter Summary ---
Author Organization [facility] Address [address] [place] [address] [place] [address] Phone Care Team Providers Care Animal Nurse Name Role Phone Gabriella Polo MD Primary Care Provider Devin Balbuena DO Unavailable [phone] Maria M Kaur BOTTLE BLOWER Unavailable [phone] Reason for Referral * MRI/CAT Scan - Closed Specialty Diagnoses / Procedures Referred By Juan Pablo tate Referred To Contact Radiology Diagnoses Left-sided weakness Ataxia Cerebrovascular accident (CVA), unspecified mechanism Procedures MRI Brain Kevin Russell MD Phone: tel: fax: [email or web address] Referral ID Status Reason Start Date Expiration Date Visits Re quested Visits Authorized [id number] Closed 03/18/2021 03/18/2022 1 1 Encounter Details Date Type Department Care Team (Latest Contact Info) Description 03/18/2021 Transcribe Orders Virtual Department [address] [place] [address] Kevin Russell MD [address] [place] [address], [address] [place] [address] [email or web address]. [employer] TIA (transient ischemic attack) (Primary Dx); Left-sided [...] mastoid air cells are clear. Procedure Note Fady Ponce MD - 04/10/2021 HISTORY: Left-sided weakness, ataxia. COMPARISON: CT brain 12/30/2018. TECHNIQUE: Exam performed on a 1.5 Nicole high-field MRI scanner. AxialT1, T2, T2*, T2 FLAIR and diffusion-weighted imaging with ADC map,sagittal T1 sequences were obtained. FINDINGS: No evidence of intracranial hemorrhage or acute infarcts. Traces of [id number] signal in the periventricular white matter consistent [...] ischemia documented in this encounter Care Teams Animal Nurse Relationship Specialty Start Date End Date Gabriella Polo MD [address] [place] [address] PCP - General 12/29/18 Devin Balbuena DO [address] [place] [address] [email or web address] Primary Oncologist Hematology and Oncology 05/12/21 Maria M Kaur NP [address] [place] [address] Nurse Practitioner Hematology and Oncology 05/23/21 documented as of this encounter Additional Source Comments The information contained in this document represents components of the legal health record. It is not the complete legal health record.[facility]
--- OUTSIDE RECORDS SUMMARY | 2025-09-05 06:01 | XMS_ITS | Encounter Summary ---
Author Organization [facility] Address [address] [place] [address] Phone Care Team Providers Care Restuarant Crew Worker Name Role Phone Gabriella Polo MD Primary Care Provider Devin Balbuena DO Unavailable [phone] Maria M Kaur MOONER Unavailable [phone] Encounter Details Date Type Department Care Team (Late st Contact Info) Description 03/18/2021 Procedure Pass [facility], [address] [address] Social History Tobacco Use Types Packs/Day Years [...] on filedocumented in this encounter Care Teams Restuarant Crew Worker Relationship Specialty Start Date End Date Gabriella Polo MD [address] [place] [address] PCP - General 12/29/18 Devin Balbuena DO [address] [place] [address] [email or web address] Primary Oncologist Hematology and Oncology 05/12/21 Maria M Kaur NP [address] [place], [place] [id number] [email or web address] Nurse Practitioner Hematology and Oncology 05/23/21 documented as of this encounter Additional Source Comments The information contained in this document represents components of the legal health record. It is not the complete legal health record.[facility]
--- OUTSIDE RECORDS SUMMARY | 2025-09-05 06:01 | XMS_ITS | Encounter Summary ---
Author Organization [facility] Address [address] [place] [address] [place] [address] Phone Care Team Providers Care Garbage Depot Worker Name Role Phone Gabriella Polo MD Primary Care Provider Devin Balbuena DO Unavailable [phone] Maria M Kaur BOX OFFICE AGENT Unavailable [phone] Encounter Details Date Type Department Care Team (Latest Contact Info) Description 04/04/2021 Transcribe Orders Virtual Department [address] [place] [address] Kevin Russell MD [address] [place] [address], [address] [place] [address] [email or web address] Cerebrovascular accident (CVA), unspecified mechanism (Primary Dx); [...] BPM [facility] Atrial Rate 86 BPM [facility] DC Interval 138 ms [facility] QRS Duration 66 ms [facility] QT Interval 368 ms [facility] QTC Interval 440 ms [facility] P [place] 40 degrees [facility] R Wave [place] -4 degrees [facility] T Wave [place] 98 degrees [facility] 04/10/2021 11:3 8 AM EDT 04/10/2021 4:02 PM EDT Narrative [facility] - 04/10/2021 4:02 PM EDT Sinus rhythm with frequent Premature ventricular complexes No previous ECGs available Confirmed by HELGA ALVARENGA MD ([id number]) on 04/10/2021 4:02:51 PM Kevin Russell MD ECG ORDERABLES Final Result [facility] documented in this encounter Visit Diagnoses Diagnosis Cerebrovascular accident (CVA), unspecified mechanism- Primary Chest pain, unspecified type Cerebrovascular accident (CVA), unspecified mechanism Chest pain, unspecified type documented in this encounter Care Teams Garbage Depot Worker Relationship Specialty Start Date End Date Gabriella Polo MD [address] [place] [address] PCP - General 12/29/18 Devin Balbuena DO [address] [place] [address] [email or web address] Primary Oncologist Hematology and Oncology 05/12/21 Maria M Kaur NP [address] [place] [address] [email or web address] Nurse Practitioner Hematology and Oncology 05/23/21 documented as of this encounter Additional Source Comments The information contained in this document represents components of the legal health record. It is not the complete legal health record.[facility]
--- OUTSIDE RECORDS SUMMARY | 2025-09-05 06:01 | XMS_ITS | Encounter Summary ---
Author Organization [facility] Address [address] [place] [address] Phone Care Team Providers Care Can Filling Room Sweeper Name Role Phone Gabriella Polo MD Primary Care Provider Devin Balbuena DO Unavailable [phone] Maria M Kaur COOK HELPER JUICE Unavailable [phone] Encounter Details Date Type Department Care Team (Late st Contact Info) Description 09/29/2021 Transcribe Orders [facility] PFT Lab [address] [place] [address] Rashid Fallon MD [address] [place] [address] [email or web address] Social History Tobacco Use Types Packs/Day Years [...] on filedocumented in this encounter Care Teams Can Filling Room Sweeper Relationship Specialty Start Date End Date Gabriella Polo MD [address] [place] [address] PCP - General 12/29/18 Devin Balbuena DO [address] [place] [address] [email or web address] Primary Oncologist Hematology and Oncology 05/12/21 Maria M Kaur NP [address] [place] [address] [email or web address] Nurse Practitioner Hematology and Oncology 05/23/21 documented as of this encounter Additional Source Comments The information contained in this document represents components of the legal health record. It is not the complete legal health record.[facility]
--- OUTSIDE RECORDS SUMMARY | 2025-09-05 06:01 | XMS_ITS | Data Portability ---
Author Organization [facility], Main Office Address [address], [address] [place] [address] Care Team Providers Care Injection Maintenance Technician Name Role Phone JULIO CÉSAR ALFREDITO PENDLETON Primary Care Provider INDY BRANDI 3RD FLOOR OTHER [phone] Assessment Encounter Date Assessment Date Assessment LastModified by Organization Details LastModified Time 01/21/2025 01/21/2025 Labs 12/25: Na 142-K 3.3-bun 12- cr 0.6-hgb 13-hct 39.2-plt 321 [email or web address] Not available 01/22/2025 07:30:07 Plan of Treatment Reminders Order Date Submit Date Provider Last Modified By Organization Details Last Modified Time Details Appointments None record ed. Lab None record ed. Referral None record ed. Procedures None record ed. Surgeries None record ed. Imaging None record ed. Medication Orders None record ed. Patient TargetsNo targets recorded. Patient InstructionsNo instructions recorded. Reason for Referral None Reported. Problems Name Problem SNOMED Code Status Onset Date Resolution Date Notes Provider Name and Address Organization Details Recorded Time Asthenia 72024781 Active 2021 JAM CASE NP [address] [facility], [address], [place], [address], [facility] 2 14:09:36 Type 2 diabetes mellitus 54131715 Active 2021 JAM CASE NP [address] [facility], [facility] [address], [place], [address], [facility] 2 14:09:44 Essential hypertension 76811318 Active 2021 JAM CASE NP [address] [facility], [address], [place], [address], [facility] 2 14:09:52 Hyperlipidemia 96949193 Active 2021 JAM JOSHUAPIN, PLASTER PATTERNMAKER [address], [address], [place], [address], [facility] 2 14:09:56 Glaucoma 87686354 Active 2021 JAM JOSHUAPIN, PLASTER PATTERNMAKER [address], [address], [place], [address], [facility] 2 14:10:05 Obstructive sleep apnea syndrome 23208974 Active 2021 JAM JOSHUAPIN, PLASTER PATTERNMAKER [address], [address], [place], [address], [facility] 2 14:10:18 Osteoarthritis 325435238 Active 2021 JAM JOSHUAPIN, PLASTER PATTERNMAKER [address], [address], [place], [address], [facility] 2 14:10:30 Benign prostatic hyperplasia 768810233 Active 2021 JAM MANPREET, PLASTER PATTERNMAKER [address], [address], [place], [address], [facility] 2 14:11:15 Syncope 468564107 Active 2021 JAM MANPREET, PLASTER PATTERNMAKER [address], [address], [place], [address], [facility] 2 11:38:40 History of hypotension 055395279 Active 2021 Laura Winchester MD [address], [address], [place], [address], [facility] 2 19:08:21 Glaucoma 34738967 Active 2021 Laura Winchester MD [address], [address], [place], [address], [facility] 2 19:14:40 COVID-19 749619713 Active 2021 JAM JOSHUAMARCO A, PLASTER PATTERNMAKER [address], [address], [place], [address], [facility] 2 11:12:09 Lumbar post-laminecto my syndrome 193010274 Active 2022 Laura Winchester MD [address] [facility], [address], [place], [address], [facility] 3 19:38:10 Chronic inflammatory demyelinating polyradiculone uropathy 034030039 Active 2023 CHET ROSARIO [address] [facility], [address], [place], [address], [facility] 4 13:13:08 Problem Notes None recorded. Medical Equipment None Reported. Allergies No known drug allergies Medications Name Sig Start Date Stop Date Status Note LastModified by Organization Details LastModified Time tramadol 50 mg tablet 50 mg po BID prn, give one dose 30 before PT/OT, may give repeat dose after 4 hrs. 023 active Not Available Not Available Not Avai lable Vitals Date Recorded Body height Respiratory rate Body temperature Oxygen saturation Oxygen saturation in Arterial blood by Pulse oximetry Systolic And Diastolic Provider Name and Address Organization Details Last Updated DateTime 5 182.88 cm 18 /min 98.1 [degF] 95 % 95 % 123/71 mm[Hg] CHET ROSARIO [address] [facility], [address], [place], [address], [facility] 5 07:25:54 Date Recorded Body height Provider Name an d Address Organization Details Last Updated DateTime 05/02/2025 182.88 cm CHET ROSARIO [address] [facility], [address], [place], [address], [facility] 05/03/2025 19:32:41 Date Recorded Body height Heart rate Respiratory rate Body temperature Oxygen saturation Oxygen saturation in Arterial blood by Pulse oximetry Systolic And Diastolic Provider Name and Address Organization Details Last Updated DateTime 4 182.88 cm 77 /min 18 /min 98 [degF] 96 % 96 % 121/80 mm[Hg] CHET ROSARIO [address] [facility], [address], [place], [address], [facility] 4 22:33:08 Date Recorded Body height Heart rate Respiratory rate Body temperature Oxygen saturation Oxygen saturation in Arterial blood by Pulse oximetry Systolic And Diastolic Provider Name and Address Organization Details Last Updated DateTime 4 182.88 cm 75 /min 18 /min 97.5 [degF] 95 % 95 % 115/76 mm[Hg] CHET ROSARIO [address] [facility], [address], [place], [address], [facility] 4 16:53:07 Date Recorded Body height Heart rate Respiratory rate Oxygen saturation Oxygen saturation in Arterial blood by Pulse oximetry Provider Name and Address Organization Details Last Updated DateTime 4 182.88 cm 78 /min 18 /min 96 % 96 % CHET ROSARIO [address] [facility], [address], [place], [address], [facility] 4 14:55:10 Social History Question Answer Notes LastModified by Organizat ion Details LastModified Time Tobacco Smoking Status Never Smoker JAM CASE NP [address] [facility], [address], [place], [address], [facility] 08/13/2022 14:12:18 Do You Have An Advance Directive? Yes Information not available 08/13/2022 What Is Your Code Status? Full Code Information not available 08/13/2022 Where Do You Live? Apartment Lives Alone Has 3 Steps Information not available 08/19/2022 Legal Guardian? No Informati on not available 08/19/2022 Do You Have A Medical Power Of Waiter Waitress? Yes Not Invoked Information not available 08/19/2022 What Was The Date Of Your Most Recent Tobacco Screening? 08/17/2022 Information not available 08/19/2022 Do You Have An Out Of Hospital DNR? No Information not available 08/19/2022 What Is Your Relationship Status? Single Information not available 08/19/2022 Has Tobacco Cessation Counseling Been Provided? No N/a As Pt Is A Non-smoker Information not available 08/19/2022 Sex: Unknown Functional Status Question Answer Note LastModified by Organizat ion Details LastModified Time Do you use any illicit or recreational drugs? No Information not available 08/13/2022 Do you or have you ever used any other forms of tobacco or nicotine? No Information not available 08/19/2022 What is your level of alcohol consumption? None Information not available 08/13/2022 Mental Status None recorded. Family History Nothing Reported Notes:n/c Medical History No medical history recorded. Immunizations Vaccine Type Date Status Note Provider Nam e and Address Organization Details Recorded Time COVID-19, mRNA, LNP-S, PF, 100 mcg/0.5mL dose or 50 mcg/0.25mL dose 1 [facility] 08/13/2022 11:48:02 COVID-19, mRNA, LNP-S, PF, 100 mcg/0.5mL dose or 50 mcg/0.25mL dose 1 [facility] 08/13/2022 11:48:10 Tdap 9 completed [facility] 08/13/2022 11:48:26 zoster live 4 completed [facility] 08/13/2022 11:48:39 Influenza, split virus, quadrivalent, preservative 2 completed Em Ku [facility] 08/19/2022 13:39:16 Influenza, adjuvanted, quadrivalent, PF [address] [facility] 11/15/2023 11:45:30 Past Encounters Encounter ID Performer Location Encounter Start Date Encounter Closed Date Diagnosis/Indication Diagnosis SNOMED-CT Code Diagnosis ICD10 Code Diagnosis IMO Codes Diagnosis Note [id number] JAZMIN PECK [address] [place] [address] 08/13/2022 13:59:41 08/18/2022 15:58:07 Asthenia 00457416 R53.1 PT OT eval and treatfall precaution sfrequent safety checks Type 2 pooja betes mellitus 41309864 E11.9 metformin 500 mg bidmonitor labs Benign pro static hyperplasia 253960284 N40.0 flomax 0.4 mg dailymonit or urine output Essential hypertension 48790058 I10 lisinopril 10 mg dailymetop rolol er 25 mg dailymonit or bp Glaucoma 69012571 H40.9 combigan 1 gtt both eyes q12 hr Hyperlipidemia 20046036 E78.5 pravastati n 80 mg daily Obstructiv e sleep apnea syndrome 81053998 G47.33 monitor Osteoarthritis 076438760 M19.90 tylenol 1000mg tidibuprof en 400 mg q8hr prngabapen tin 300 mg hsergocali f 50,000 wednesday [id number] JAM CASE NP [facility] [address] [place] [address] 08/14/2022 11:37:08 08/18/2022 16:08:55 Syncope 656646049 R55 change position slowlybp parameters placed on metoprolol and lisinopril hold sbp less than 100 [id number] Laura Winchester MD [address] [address] 08/17/2022 16:18:40 08/20/2022 09:29:13 Asthenia 17029695 R53.1 Very deconditio kenneth.Needs PT/OT for strengthen ing, balance, gait training, safety and function.C ontinue fall precaution s.Monitor for safety. Type 2 pooja betes mellitus 54161093 E11.9 HgA1C 5.4 in on tinue metformin 500 mg BID.Check HgA1C with next labs as FBS was 120 on admission. Benign pro static hyperplasia 196327832 N40.0 Continue tamsulosin 0.4 mg qd.Monitor urinary function. Essential hypertension 20972629 I10 BP on low side since here, as well as hypotensiv e episode noted above.Cont inue lisinopril 10 mg qd and metoprolol ER 25 mg qd with parameters to hold for SBP<100.Mo nitor BP and labs. Glaucoma 39050310 H40.89 Continue combigan 1 gtt both eyes q12 hrF/U with eye as planned. Hyperlipidemia 23193145 E78.49 Continue pravastati n 80 mg qd.Monitor labs as outpt. Obstructiv e sleep apnea syndrome 74797130 G47.33 Continue CPAP with sleep.F/U as planned. Osteoarthritis 135705380 M15.0 As above. History of hypotension 350802751 I95.1 With hypotensiv e event on 08/14 with brief LOC. No recurrence .Monitor for sxs. Lumbar post-laminectomy syndrome 702247843 M96.1 With failed back syndrome, has had some epidurals with pain clinic.No further surgical interventi on indicated per neurosurg. (Dr. Shelley).Contin ue APAP 1000 mg TID, gabapentin 300 mg qhs, and ibuprofen 400 mg q 8 hrs prn. Incontinence of feces 72 428697 R15.9 Rare episodes, but very concerning to pt. Thinks it could be an infection, I reassure him that with such infrequent episodes this is very unlikely.G I consult. [id number] JAM CASE NP [address] [address] 08/21/2022 11:44:40 08/25/2022 13:17:05 Benign prostatic hyperplasia 562140368 N40.0 flomax 0.4 mg dailymonit or urine output Osteoarthritis 752626073 M15.0 tylenol 1000mg tidibuprof en 400 mg q8hr prngabapen tin 300 mg hsergocali f 50,000 wednesday Asthenia 47556136 R53.1 PT OT eval and treatfall precaution sfrequent safety checks [id number] JAM CASE NP [address] [address] 08/27/2022 11:34:25 09/02/2022 15:44:44 Essential hypertension 52779760 I10 lisinopril 10 mg dailymetop rolol er 25 mg dailymonit or bp Asthenia 38814049 R53.1 PT OT eval and treatfall precaution sfrequent safety checks [id number] JAM CASE NP [address] [address] 09/02/2022 10:12:11 09/04/2022 12:24:24 Type 2 diabetes mellitus 71258731 E11.9 metformin 500 mg bidmonitor labs Asthenia 56852601 R53.1 PT OT eval and treatfall precaution sfrequent safety checks [id number] JAM CASE NP [address] [address] 09/16/2022 14:29:09 09/22/2022 14:22:58 Asthenia 14049625 R53.1 PT OT eval and treatfall precaution sfrequent safety checks Type 2 pooja betes mellitus 26692726 E11.9 metformin 500 mg bidmonitor labs Benign pro static hyperplasia 138982156 N40.0 flomax 0.4 mg dailymonit or urine output Essential hypertension 31626387 I10 lisinopril 10 mg dailymetop rolol er 25 mg dailymonit or bp Glaucoma 54637015 H40.9 combigan 1 gtt both eyes q12 hr Hyperlipidemia 47585283 E78.5 pravastati n 80 mg daily Obstructiv e sleep apnea syndrome 47848442 G47.33 monitor Osteoarthritis 882086196 M19.90 tylenol 1000mg tidibuprof en 400 mg q8hr prngabapen tin 300 mg hsergocali f 50,000 wednesday [id number] JAM CASE NP [address] [address] 09/23/2022 15:09:58 09/28/2022 20:25:01 Benign prostatic hyperplasia 603027439 N40.0 flomax 0.4 mg dailymonit or urine output Essential hypertension 79244675 I10 lisinopril 10 mg dailymetop rolol er 25 mg dailymonit or bp [id number] JAM CSAE NP [address] [address] 10/01/2022 11:05:02 10/06/2022 15:22:32 Benign prostatic hyperplasia 300394306 N40.0 flomax 0.4 mg dailymonit or urine output Asthenia 98096239 R53.1 PT OT eval and treatfall precaution sfrequent safety checks [id number] Jolly Dobson MD [address] [address] 10/14/2022 08:22:50 10/30/2022 11:36:09 Asthenia [id number] R53.1 PT/OT/SLPw ill monitor and support as needed Essential hypertension 88503807 I10 metoprolol ER 25 mg dailylisin opril 10 mg dailywill monitor Type 2 pooja betes mellitus 52764686 E11.9 metformin 500 mg i76qrvru monitor Hyperlipidemia 86843677 E78.49 pravastati n 80 mg dailywill monitor Benign pro static hyperplasia 112486972 N40.0 tamsulosin 0.4 mg at hswill monitor Chronic pain 20325644 G8 9.29 ibuprofen 400 mg q8h prnAPAP 1000 mg tidgabapen tin 300 mg at hswill monitorPM& R prn [id number] JAM CASE NP [address] [address] 10/19/2022 10:39:19 10/30/2022 13:35:31 COVID-19 249265085 U07.1 10/16 covid positiveen courage po intakecons ider ivf for anorexiaco nsider paxlovid or decadron for symptomsse nd to ED for decompensa tion [id number] JAM CASE NP [address] [address] 10/21/2022 11:28:57 10/30/2022 14:11:55 COVID-19 485360740 U07.1 10/16 covid positiveen courage po intakecons ider ivf for anorexiaco nsider paxlovid or decadron for symptomsse nd to ED for decompensa tion [id number] JAM CASE NP [address] [address] 10/22/2022 12:52:37 10/30/2022 14:44:51 COVID-19 813348673 U07.1 10/16 covid positiveen courage po intakecons ider ivf for anorexiaco nsider paxlovid or decadron for symptomsse nd to ED for decompensa tion [id number] JAM CASE NP [address] [address] 10/23/2022 11:19:22 10/30/2022 15:18:07 COVID-19 741675040 U07.1 10/16 covid positiveen courage po intakecons ider ivf for anorexiaco nsider paxlovid or decadron for symptomsse nd to ED for decompensa tion [id number] JAM CASE NP [facility] BRANDI [address] [place] [address] [place] [address] 10/26/2022 13:45:13 10/30/2022 15:44:16 COVID-19 937512093 U07.1 10/16 covid positive-a symptomati c, recovered by dateencour age po intakecons ider ivf for anorexiaco nsider paxlovid or decadron for symptomsse nd to ED for decompensa tion [id number] JAM CASE NP [facility] BR[address] [place] [address] 11/05/2022 13:14:46 11/11/2022 12:03:45 Asthenia 65169387 R53.1 PT/OT/SLPw ill monitor and support as needed Essential hypertension 06878601 I10 metoprolol ER 25 mg dailylisin opril 10 mg dailywill monitor Type 2 pooja betes mellitus 71083073 E11.9 metformin 500 mg o96iqehn monitor Hyperlipidemia 92726379 E78.49 pravastati n 80 mg dailywill monitor Benign pro static hyperplasia 123324726 N40.0 tamsulosin 0.4 mg at hswill monitor Chronic pain 68079573 G8 9.29 ibuprofen 400 mg q8h prnAPAP 1000 mg tidgabapen tin 300 mg at hswill monitorPM& R prn Glaucoma 00985297 H40.9 combigan 1 gtt both eyes q12 hr Osteoarthritis 041581553 M19.90 tylenol 1000mg tidibuprof en 400 mg q8hr prngabapen tin 300 mg hsergocali f 50,000 wednesday COVID-19 364740167 U07.1 10/16 covid positive-a symptomati c, recovered by dateencour age po intakecons ider ivf for anorexiaco nsider paxlovid or decadron for symptomsse nd to ED for decompensa tion [id number] [facility] [address] [place] [address] [place] [address] 12/30/2022 10:19:28 01/01/2023 12:02:47 Asthenia 87756840 R53.1 PT/OT prnwill monitor and support as needed Essential hypertension 29944221 I10 metoprolol ER 25 mg dailylisin opril 10 mg dailywill monitor Benign pro static hyperplasia 453792787 N40.0 tamsulosin 0.4 mg at hswill monitor Chronic pain 71572116 G8 9.29 ibuprofen 400 mg q8h prnAPAP 1000 mg tidLidocai ne patch to lower back dailywill monitorPM& R prn Hyperlipidemia 88751361 E78.49 pravastati n 80 mg dailywill monitor [id number] JAM CASE NP [address] [address] 02/26/2023 13:26:54 03/03/2023 17:22:18 Asthenia [id number] R53.1 PT/OT/SLPw ill monitor and support as needed Essential hypertension 26424323 I10 metoprolol ER 25 mg dailylisin opril 10 mg dailywill monitor Type 2 pooja betes mellitus 70510746 E11.9 metformin 500 mg d22brioe monitor Hyperlipidemia 96374312 E78.49 pravastati n 80 mg dailywill monitor Benign pro static hyperplasia 329988854 N40.0 tamsulosin 0.4 mg at hswill monitor Chronic pain 39611675 G8 9.29 ibuprofen 400 mg q8h prnAPAP 1000 mg tidgabapen tin 300 mg at hswill monitorPM& R prn Glaucoma 77853703 H40.9 combigan 1 gtt both eyes q12 hr Osteoarthritis 524592142 M19.90 tylenol 1000mg tidibuprof en 400 mg q8hr prngabapen tin 300 mg hsergocali f 50,000 wednesday [id number] Jolly Dobson MD [address] [address] 05/12/2023 10:27:29 05/14/2023 16:08:46 Asthenia 26967847 R53.1 PT/OT prnwill ask PT to evaluate wheelchair for better fitwill monitor and support as needed Essential hypertension 77456396 I10 metoprolol ER 25 mg dailylisin opril 10 mg dailywill monitor Type 2 pooja betes mellitus 84513070 E11.9 metformin 500 mg j90qliaw monitor Chronic pain 40947987 G8 9.29 ibuprofen 400 mg q8h prngabapen tin 300 mg at hsAPAP 1000 mg tidLidocai ne patch to lower back dailywill monitorPM& R prn Benign pro static hyperplasia 977809390 N40.0 tamsulosin 0.4 mg at hswill monitor Hyperlipidemia 07880982 E78.49 pravastati n 80 mg dailywill monitor [id number] JAM CASE NP [address] [address] 07/02/2023 16:33:53 07/09/2023 10:02:20 Asthenia 80787371 R53.1 PT/OT/SLPw ill monitor and support as needed Essential hypertension 59901438 I10 metoprolol ER 25 mg dailylisin opril 10 mg dailywill monitor Type 2 pooja betes mellitus 38964638 E11.9 metformin 500 mg f47alqeo monitor Hyperlipidemia 28350242 E78.49 pravastati n 80 mg dailywill monitor Benign pro static hyperplasia 401818008 N40.0 tamsulosin 0.4 mg at hswill monitor Chronic pain 58837813 G8 9.29 ibuprofen 400 mg q8h prnAPAP 1000 mg tidgabapen tin 300 mg at hswill monitorPM& R prn Glaucoma 10241496 H40.9 combigan 1 gtt both eyes q12 hr Osteoarthritis 819824995 M19.90 tylenol 1000mg tidibuprof en 400 mg q8hr prngabapen tin 300 mg hsergocali f 50,000 wednesday [id number] JAM CASE NP [address] [address] 08/24/2023 12:45:46 08/27/2023 16:38:53 Asthenia [id number] R53.1 PT/OT/SLPw ill monitor and support as needed Essential hypertension 88529366 I10 metoprolol ER 25 mg dailylisin opril 10 mg dailywill monitor Type 2 pooja betes mellitus 08391094 E11.9 metformin 500 mg i50jdxib monitor Hyperlipidemia 01787003 E78.49 pravastati n 80 mg dailywill monitor Benign pro static hyperplasia 328452537 N40.0 tamsulosin 0.4 mg at [facility] monitor Chronic pain 63012761 G8 9.29 ibuprofen 400 mg q8h prnAPAP 1000 mg tidgabapen tin 300 mg at [facility] monitorPM& R prn Glaucoma 55018645 H40.9 combigan 1 gtt both eyes q12 hr Osteoarthritis 337641871 M19.90 tylenol 1000mg tidibuprof en 400 mg q8hr prngabapen tin 300 mg hsergocali f 50,000 wednesday [id number] MD INDY Silverio [address] [place] [address] 08/27/2023 19:08:11 08/31/2023 11:28:01 Asthenia 69847394 R53.1 Has completed rehab for now.Contin ue fall precaution s.Monitor for safety.Res tart PT/OT prn.F/U with neuro, left note for staff to call on Wednesday (08/30) to find out if he needs f/u appt, or if they will call him. Lumbar post-laminectomy syndrome 316268791 M96.1 With failed back syndrome.N o further surgical interventi on indicated per neurosurg. (Dr. Shelley).Contin ue APAP 1000 mg TID, gabapentin 300 mg qhs, and ibuprofen 600 mg q 8 hrs prn.Monito r sxs. Osteoarthritis 271253954 M15.0 As above. Type 2 pooja betes mellitus 35202254 E11.9 HgA1C 5.8 in 2Con tinue metformin 500 mg BID.Due for yearly HgA1C, will order for next wk. With CBC and CMP. Benign pro static hyperplasia 019494340 N40.0 Continue tamsulosin 0.4 mg qd.Monitor urinary function. Essential hypertension 06277679 I10 BP in good range recently, with hx of hypotensio n, but none recentlyCo ntinue lisinopril 10 mg qd and metoprolol ER 25 mg qd with parameters to hold for SBP<100.Mo nitor BP and labs. Obstructiv e sleep apnea syndrome 60803078 G47.33 Continue CPAP with sleep.F/U as planned. [id number] MD INDY Silverio [address] [place] [address] 10/14/2023 13:39:10 11/01/2023 14:59:05 Lumbar post-laminectomy syndrome 530915201 M96.1 With failed back syndrome.N o further surgical interventi on indicated per neurosurg. (Dr. Shelley).Will start tramadol 50 mg BID prn.Contin ue APAP 1000 mg TID, gabapentin 300 mg qhs, and ibuprofen 600 mg q 8 hrs prn.Monito r sxs. [id number] JAZMIN PECK BRANDI [address] [place] [address] [place] [address] 10/22/2023 12:51:15 11/02/2023 13:33:39 Asthenia [id number] R53.1 PT/OT/SLPw ill monitor and support as needed Essential hypertension 06722740 I10 metoprolol ER 25 mg dailylisin opril 10 mg dailywill monitor Type 2 pooja betes mellitus 00000553 E11.9 metformin 500 mg t13zchdy monitor Hyperlipidemia 82511344 E78.49 pravastati n 80 mg dailywill monitor Benign pro static hyperplasia 004264213 N40.0 tamsulosin 0.4 mg at [facility]swill monitor Chronic pain 29707208 G8 9.29 ibuprofen 400 mg q8h prnAPAP 1000 mg tidgabapen tin 300 mg at [facility]swill monitorPM& R prn Glaucoma 70771707 H40.9 combigan 1 gtt both eyes q12 hr Osteoarthritis 153417834 M19.90 tylenol 1000mg tidibuprof en 400 mg q8hr prngabapen tin 300 mg hsergocali f 50,000 wednesday Lumbar post-laminectomy syndrome 802382445 M96.1 With failed back syndrome.N o further surgical interventi on indicated per neurosurg. (Dr. Shelley).Will start tramadol 50 mg BID prn. give one dose 30 min before PT/OT, may give repeat dose after 4hrContinu e APAP 1000 mg TID, gabapentin 300 mg qhs, and ibuprofen 600 mg q 8 hrs prn.Monito r sxs. [id number] MD INDY Penn BRANDI [address] [place] [address] [place] [address] 12/22/2023 08:47:11 12/28/2023 10:30:20 Asthenia [id number] R53.1 PT/OT prnwill monitor and support as needed Essential hypertension 28542028 I10 metoprolol ER 25 mg dailylisin opril 10 mg dailywill monitor Type 2 pooja betes mellitus 74984109 E11.9 metformin 500 mg f52qdfpa monitor Chronic pain 82768719 G8 9.29 ibuprofen 600 mg q8h prngabapen tin 300 mg at hstramadol 50 mg q12h prnAPAP 1000 mg tidLidocai ne patch to lower back dailywill monitorPM& R prn Benign pro static hyperplasia 399610799 N40.0 tamsulosin 0.4 mg at hswill monitor [id number] CHET ROSARIO [address] [address] 02/10/2024 11:18:10 02/18/2024 14:46:05 Asthenia 69104817 R53.1 PT/OT prnwill monitor and support as needed Essential hypertension 95887947 I10 metoprolol ER 25 mg dailylisin opril 10 mg dailywill monitor Type 2 pooja betes mellitus 63938002 E11.9 metformin 500 mg q53qmico monitor Chronic pain 08973190 G8 9.29 ibuprofen 600 mg q8h prngabapen tin 300 mg at hstramadol 50 mg q12h prnAPAP 1000 mg tidLidocai ne patch to lower back dailywill monitorPM& R prn Benign pro static hyperplasia 616875877 N40.0 tamsulosin 0.4 mg at hswill monitor [id number] Laura Winchester MD [address] [address] 04/28/2024 22:40:14 05/16/2024 07:57:45 Asthenia 11631008 R53.1 With a neuro dx, but no notes in chart stating name, ?polymyalg ia rheumatica , as steroids seem to be the tx?Continu e prednisone 20 mg qdContinue fall precaution s.Monitor for safety.F/U with neuro as planned Lumbar post-laminectomy syndrome 263261079 M96.1 With failed back syndrome.N o further surgical interventi on indicated per neurosurg. (Dr. Shelley).Contin ue APAP 1000 mg TID, gabapentin 300 mg qhs, lidocaine patch qd, tramadol 50 mg BID prn, and ibuprofen 600 mg q 8 hrs prn.Monito r sxs. Osteoarthritis 387581305 M15.0 As above. Type 2 pooja betes mellitus 22585213 E11.9 HgA1C 5.2 in 3Con tinue metformin 500 mg BID.Monito r HgA1C and CMP yearly, and fingerstic ks prn.Likely to have more elevated sugars now that he is on chronic prednisone . Benign pro static hyperplasia 707078722 N40.0 Continue tamsulosin 0.4 mg qd.Monitor urinary function. Essential hypertension 94904102 I10 BP in good control on current regimen.Co ntinue lisinopril 10 mg qd and metoprolol ER 25 mg qd with parameters to hold for SBP<100.Mo nitor BP and labs. Obstructiv e sleep apnea syndrome 34453097 G47.33 Continue CPAP with sleep.F/U as planned. [id number] CHET ROSARIO [address] [place] [address] 5 06/14/2024 13:58:21 06/16/2024 10:39:02 Asthenia 38589725 R53.1 PT/OT prnwill monitor and support as needed Essential hypertension 42973716 I10 metoprolol ER 25 mg dailylisin opril 10 mg dailywill monitor Type 2 pooja betes mellitus 14492606 E11.9 metformin 500 mg r90spqacyy ue lispro SSCwill monitor Chronic pain 85727175 G8 9.29 ibuprofen 600 mg q8h prngabapen tin 300 mg at hstramadol 50 mg q12h prnAPAP 1000 mg tidLidocai ne patch to lower back dailywill monitorPM& R prn Benign pro static hyperplasia 220904197 N40.0 tamsulosin 0.4 mg at hswill monitor Glaucoma 65362226 H40.9 continue combigan 1 gtt both eyes q12 hr Hyperlipidemia 39293071 E78.49 pravastati n 80 mg dailywill monitor [id number] [facility] [address] [place] [address]-095 5 06/19/2024 11:23:49 06/21/2024 10:23:27 Type 2 diabetes mellitus 40210238 E11.9 bgl high 290s to 400s06/15: A1c 7.5 up from 5.2 in aug 2023.will add glyburide 2.5 mg daily and monitor bgl and need to titrateref er to building rental manager for nutritiona l counseling continue metformin 500 mg u69fqlllrr ue lispro SSCwill monitor [id number] CHET ROSARIO [address] [address] 07/17/2024 14:05:16 07/18/2024 13:42:01 Type 2 diabetes mellitus 28217100 E11.9 bgl have improved, will increased glimepirid e to 4 mg for better control05/26 2: A1c 7.5 up from 5.2 in aug 2023.refer to building rental manager for nutritiona l counseling -was seen on 06/18/24 refer to [facility] for note.jamel nue metformin 500 mg y41lmcxfgt ue lispro SSCwill monitor [id number] CHET ROSARIO [address] [address] 08/03/2024 10:18:20 08/08/2024 15:51:46 Chronic inflammatory demyelinating polyradiculoneuropath y 822540396 G61.81 08/03/24: s/p intravenou s immunoglob ulin therapy administer ed daily x 5 days-compl eted Essential hypertension 98791994 I10 stable, no chest pain/heada chesmetopr olol ER 25 mg dailylisin opril 10 mg dailywill monitor Type 2 pooja betes mellitus 59742307 E11.9 recently started on glimepride , bgl improved now mainly under 150metform in 1g dailyconti nue lispro SSCwill monitor Chronic pain 26325012 G8 9.29 stableibup rofen 600 mg q8h prngabapen tin 300 mg at hstramadol 50 mg q12h prnAPAP 1000 mg tidLidocai ne patch to lower back dailywill monitorPM& R prn Benign pro static hyperplasia 645795912 N40.0 tamsulosin 0.4 mg at hswill monitor Glaucoma 29353151 H40.9 continue combigan 1 gtt both eyes q12 hrstable Hyperlipidemia 28611877 E78.49 pravastati n 80 mg dailywill monitor [id number] CHET ROSARIO [address] [address] 5 09/14/2024 10:53:30 09/20/2024 12:03:57 Essential hypertension 48184143 I10 stable, no chest pain/heada chesmetopr olol ER 25 mg dailylisin opril 10 mg dailywill monitor Type 2 pooja betes mellitus 60882095 E11.9 BGL mainly under 150continu e glimepride 2 mg daily rmetformin 1g dailyconti nue lispro SSCwill monitor Chronic pain 09824436 G8 9.29 stableibup rofen 600 mg q8h prngabapen tin 300 mg at hstramadol 50 mg q12h prnAPAP 1000 mg tidLidocai ne patch to lower back dailywill monitorPM& R prn Benign pro static hyperplasia 161968172 N40.0 tamsulosin 0.4 mg at hswill monitor Glaucoma 42430999 H40.9 continue combigan 1 gtt both eyes q12 hrstable Hyperlipidemia 56187993 E78.49 pravastati n 80 mg dailywill monitor Fall W19.XXXA 09/07: unwitnesse d fall, slid out of wheelchair after feet slid off foot rest and chair cushion shift. [id number] CHET ROSARIO [address] [address] 5 09/25/2024 12:34:51 09/27/2024 11:51:24 Essential hypertension 89068233 I10 stable, no chest pain/heada chesmetopr olol ER 25 mg dailylisin opril 10 mg dailywill monitor Type 2 pooja betes mellitus 68400670 E11.9 BGL mainly under 150continu e glimepride 2 mg daily rmetformin 1g dailyconti nue lispro SSCwill monitor Chronic pain 30276914 G8 9.29 stableibup rofen 600 mg q8h prngabapen tin 300 mg at hstramadol 50 mg q12h prnAPAP 1000 mg tidLidocai ne patch to lower back dailywill monitorPM& R prn Benign pro static hyperplasia 763443315 N40.0 tamsulosin 0.4 mg at hswill monitor Glaucoma 07013791 H40.9 continue combigan 1 gtt both eyes q12 hrstable Hyperlipidemia 25770210 E78.49 pravastati n 80 mg dailywill monitor Chronic in flammatory demyelinating polyradiculoneuropath y 624538555 G61.81 08/03/24: s/p intravenou s immunoglob ulin therapy administer ed daily x 5 days-compl eted Lumbar post-laminectomy syndrome 455635365 M96.1 Continue APAP 1000 mg TID, gabapentin 300 mg qhs, lidocaine patch qd, tramadol 50 mg BID prn, and ibuprofen 600 mg q 8 hrs prn.Monito r sxs. [id number] CHET ROSARIO [address] [place] [address] 5 10/05/2024 12:36:22 10/06/2024 13:28:16 Blister of sole of foot 285093146 S90.822A He is non ambulatory circular, clear fluid filled blister noted intact, measuring approximat brittnee 5 x 4 cm, surroundin g skin intact does not appear to be infected.m ost likely from friction and or pressurede nies any discomfort apply skin prep qd and wrap lightlywhe n blister erupts, cleanses with NS and paint with betadine qdoffload while in beddiscuss ed with nursing, will update with worsening sx. [id number] CHET ROSARIO [address] [address] 01/21/2025 10:59:32 01/25/2025 16:18:57 Essential hypertension 20168907 I10 stablemeto prolol ER 25 mg dailylisin opril 10 mg dailywill monitor Type 2 pooja betes mellitus 52474147 E11.9 stableBGL mainly under 150continu e glimepride 2 mg daily rmetformin 1g dailyconti nue lispro SSCwill monitor Chronic pain 54786778 G8 9.29 stableibup rofen 600 mg q8h prngabapen tin 300 mg at hstramadol 50 mg q12h prnAPAP 1000 mg tidLidocai ne patch to lower back dailywill monitorPM& R prn Benign pro static hyperplasia 884760225 N40.0 stabletams ulosin 0.4 mg at hswill monitor Glaucoma 64485840 H40.9 continue combigan 1 gtt both eyes q12 hrstable Hyperlipidemia 05348481 E78.49 cont pravastati n 80 mg daily [id number] CHET ROSARIO [address] [facility] [address] 05/02/2025 05:57:15 05/04/2025 13:11:05 Essential hypertension 76616993 I10 continue:m etoprolol ER 25 mg dailylisin opril 10 mg dailywill monitor Type 2 pooja betes mellitus 59101190 E11.9 continue glimepride 2 mg dailymetfo rmin 1g dailyconti nue lispro SSCwill monitor Chronic pain 22515876 G8 9.29 ibuprofen 600 mg q8h prngabapen tin 300 mg at hstramadol 50 mg q12h prnAPAP 1000 mg tidLidocai ne patch to lower back dailywill monitorPM& R prn Benign pro static hyperplasia 643383998 N40.0 tamsulosin 0.4 mg at hswill monitor Glaucoma 69307998 H40.9 continue combigan 1 gtt both eyes q12 hrstable Hyperlipidemia 62306497 E78.49 cont pravastati n 80 mg daily Health Concerns Section Related Observation LastModified by Organization Detai ls LastModified Time None Recorded Concern Status LastModified by Organization Details LastModified Time None Recorded Advance Directives Directive Y: Payers Insurance Date Sequence Insurance Name Policy Number Policy Navas Covered Member ID Navas Member ID Guarantor Name 05/02/2025 1 [place]IC[place]: [employer] Truong Matthew [id number] Truong Matthew 05/02/2025 2 AARP (MEDICARE SUPPLEMENT) Truong Matthew [id number] Truong Matthew Notes Date Note Type Note Provider Name and Address Organization Details Recorded Time 09/14/2024 text/html ROS as noted in the HPI 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 He is at his baseline.There has been no acute concerns or events. he is eating and drinking well. Glucose levels controlled, dependent on nursing staff to meet care needs. recent fall with no injuries reported. 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 There has been no acute concerns or events. He is eating and drinking well. Glucose levels controlled, dependent on nursing staff to meet ADL care needs. He reports thatbhe is doing ok, offers no complaints. 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 Past medical History that included DM, hypertension, hyperlipidemia, RANGEL, glaucoma, DJD CHET ROSARIO [facility], [address], [place], [address], [employer] 10/05/2024 15:16:46 01/21/2025 text/html ROS as noted in the HPI This is a 69 yr old male senior care care resident seen for routine rounding. He is stable at his baseline in NAD, Denies any pain or discomfort, there is no changes in appetite or elimination. There are no acute nursing concerns. CHET ROSARIO [address] [facility], [address], [place], [address], [employer] 01/22/2025 07:31:11 05/02/2025 text/html ROS as noted in the HPI This is a 69 yr old male senior care care resident seen for routine rounding. Medically he is stable at his baseline, there is jno acute concerns. CHET ROSARIO [address] [facility], [address], [place] [address], [facility] 05/03/2025 19:35:23
--- OUTSIDE RECORDS SUMMARY | 2025-09-05 06:01 | XMS_ITS | Encounter Summary ---
Author Organization [facility] Address [address] [facility] [address] [place] [address] Phone Care Team Providers Care Edging Machine Operator Name Role Phone Gabriella Polo MD Primary Care Provider Devin Balbuena DO Unavailable [phone] Maria M Kaur CAREER DEVELOPMENT CONSULTANT Unavailable [phone] Encounter Details Date Type Department Care Team (Late st Contact Info) Description 06/18/2021 Transcribe Orders [address] [address] Devin Balbuena DO [address] [place] [address] [email or web address] Social History Tobacco Use Types Packs/Day [...] on filedocumented in this encounter Care Teams Edging Machine Operator Relationship Specialty Start Date End Date Gabriella Polo MD [address] [place] [address] [id number] PCP - General 12/29/18 Devin Balbuena DO [address] [place] [address] [email or web address] Primary Oncologist Hematology and Oncology 05/12/21 Maria M Kaur NP [address] [place] [address] [email or web address] Nurse Practitioner Hematology and Oncology 05/23/21 documented as of this encounter Additional Source Comments The information contained in this document represents components of the legal health record. It is not the complete legal health record.[facility]
--- OUTSIDE RECORDS SUMMARY | 2025-09-05 06:01 | XMS_ITS | Encounter Summary ---
Author Organization [facility] Address [address] [facility] [address] [place] [address] Phone Care Team Providers Care Director Of Purchasing Name Role Phone Gabriella Polo MD Primary Care Provider Devin Balbuena DO Unavailable [phone] Maria M Kaur WORKERS COMPENSATION DEFENSE ATTORNEY Unavailable [phone] Encounter Details Date Type Department Care Team (Late st Contact Info) Description 07/04/2021 Procedure Pass [facility], Ct Scan - [address] [address] Social History Tobacco Use Types Packs/Day Years [...] 3:51 PM EDT Maranda Law RN * [place] Suicide Severity Rating Scale (Screener/Recent Self-Report) Question Answer Date of Assessment Author 1. Wish to be (Past 1 Month) No 07/04/2021 3:51 PM Praveena Benavides RN 2. Non-Specific Active Suicidal Thoughts (Past 1 Month) No 07/04/2021 3:51 PM Praveena Benavides RN 6. Suicidal Behavior (Lifetime) No 07/04/2021 3:51 PM EDT Praveena Nieves RN documented as of this encounter Plan of Treatment Not on file documented as of this encounter Visit Diagnoses Not on filedocumented in this encounter Care Teams Director Of Purchasing Relationship Specialty Start Date End Date Gabriella Polo MD [address] [place] [address] PCP - General 12/29/18 Devin Balbuena DO [address] [place] [address] [email or web address] Primary Oncologist Hematology and Oncology 05/12/21 Maria M Kaur NP [address] [place] [address] [email or web address] Nurse Practitioner Hematology and Oncology 05/23/21 documented as of this encounter Additional Source Comments The information contained in this document represents components of the legal health record. It is not the complete legal health record.[facility]
--- OUTSIDE RECORDS SUMMARY | 2025-09-05 06:01 | XMS_ITS | Clinical Summary ---
Author Organization [facility] Address [address] [place] [address] [place] [address] Phone Care Team Providers Care Site Worker Name Role Phone Gabriella Polo MD Primary Care Provider Devin Balbuena DO Unavailable [phone] Maria M Kaur HEEL LINING PASTER Unavailable [phone] Allergies No known active allergies Medications pravastatin [...] RECOMMENDATION: Await additional serologies, including MPO antibody, NJ-3 antibody, ANCA and anti-GBM antibody. 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 Rheumatoid factor is slightly elevated at 15.3. [...] and metoprolol were confirmed with his pharmacy, [facility] in [place]. Reasonable control --Continue lisinopril and metoprolol per [...] Preservative Free IM 07/08/2021(Deferred: Not Available From Distributing Clerk) Tdap 12/30/2018 Zoster live 01/12/2014 Social History [...] COLONOSCOPY 1998 RSV VACCINE (1 - Risk 50-74 years 1-dose series) 2003 ZOSTER VACCINES (2 of 3) 03/09/2014 01/12/2014 DIABETIC EYE EXAM 07/05/2021 HEMOGLOBIN A1C 01/02/2022 07/05/2021 CREATININE LEVEL 07/31/2022 07/31/2021, , 07/05/2021, Additional history exists POTASSIUM LEVEL 07/31/2022 07/31/2021, 06/25, 07/05/2021, Additional history exists INFLUENZA VACCINE (#1) 2025 COVID-19 VACCINE ( - 2025-26 season) 2025 02/27/2021, 01/30/2021 Adult Td,Tdap Booster 12/30/2028 12/30/2018 [...] Date/Time Associated Diagnosis Comments COMPREHENSIVE METABOLIC PANEL (CMP) Routine 07/31/2021 6:00 AM EDT Weakness Routine lab draw HEMOGLOBIN A1C Routine 07/05/2021 5:25 AM EDT from Last 3 Months or Most Recently Relevant to Health Maintenance Results * (ABNORMAL) Comprehensive metabolic panel (07/31/2021 6:00 AM EDT) SODIUM 137 133 - 146 mmol/L [facility] POTASSIUM 4.4 3.3 - 5.1 mmol/L [facility] CHLORIDE 101 96 - 108 mmol/L [facility] CO2 25 21 - 35 mmol/L [facility] BUN 16 6 - 19 mg/dL [facility] CREATININE 0.90 0.5 - 1.5 mg/dL [facility] GLUCOSE 108(H) 70 - 99 mg/dL [facility] ALBUMIN 3.0(L) 3.9 - 4.8 g/dL [facility] TOTAL PROTEIN 5.7(L) 6.5 - 8.0 g/dL [facility] CALCIUM 8.9 8.4 - 10.3 mg/dL [facility] ALKALINE PHOSPHATASE 104 39 - 117 U/L [facility] TOTAL BILIRUBIN 0.3 0.0 - 1.2 mg/dL [facility] AST 24 0 - 37 U/L [facility] ALT 27 0 - 40 U/L [facility] GLOBULIN 2.7 1 - 4.8 g/dL [facility] EGFR 87 >59 mL/min/1.7 3m2 [facility] Comment:Estimated glomerular filtration rate calculated using the CKD-EPI equation. ANION GAP 15 10 - 20 mmol/L [facility] Blood 07/31/2021 6:00 AM EDT 07/31/2021 7:46 AM EDT us Jose Blanca MD LAB BLOOD BKR ORDERABLES Final R esult Performing Organization Address City/[facility]/ZIP Co de Phone Number [address] [address] * Hemoglobin A1c (07/05/2021 5:25 AM EDT) HEMOGLOBIN A1C 5.7 4.3 - 5.8 % [facility] Blood 07/05/2021 5:25 AM EDT 07/05/2021 6:03 AM EDT us Cezar Lyn DO LAB BLOOD BKR ORDERABLES Rosa l Result Performing Organization Address [facility] Co de Phone Number [address] [address] from Last 3 Months or Most Recently Relevant to Health Maintenance Insurance MEDICARE PART A & B [facility] MEDICARE SUPPLEMENT MEDICARE PART A & B [facility] MEDICARE SUPPLEMENT MEDICARE PART A & B [facility] MEDICARE SUPPLEMENT MEDICARE PART A & B [facility] MEDICARE SUPPLEMENT MEDICARE PART A & B [facility] MEDICARE SUPPLEMENT [facility] Address: [facility] [address] [place] [address] MEDICARE PART A & B [facility] MEDICARE SUPPLEMENT MEDICARE PART A & B MEDICARE SUPPLEMENT MEDICARE PART A & B [id number] [place] [address] MEDICARE SUPPLEMENT MEDICARE PART A & B [facility] MEDICARE SUPPLEMENT Advance Directives For more information, please contact: [phone] (9AM - 5PM [facility], Wednesday-Wednesday) * Full Code (Latest Code Status on File) Date Activated Date Inactivated Comments 07/05/2021 2:19 AM Question Answer Comments Code Status Confirmed With: Patient Care Teams Site Worker Relationship Specialty Start Date End Date Gabriella Polo MD [address] [place] [address] PCP - General 12/29/18 Devin Balbuena DO [address] [place] [address] [email or web address] Primary Oncologist Hematology and Oncology 05/12/21 Maria M Kaur NP [address] [place] [address] [email or web address] Nurse Practitioner Hematology and Oncology 05/23/21 Additional Source Comments The information contained in this document represents components of the legal health record. It is not the complete legal health record.[facility]
[2025-09-05 07:28] LABS: Hematocrit 39.0 % (42.0-52.0); Hemoglobin 12.7 g/dl (14.0-18.0); Imm Gran Abs Auto 0.04 X10*3/uL (0.00-0.03); Imm Gran Pct Auto 0.4 % (0.0-0.4); Lymphocytes Absolute Auto 1.5 X10*3/uL (1.2-4.9); Mean Corpuscular HGB Conc 32.6 g/dl (31.0-36.0); Mean Corpuscular Hemoglobin 30.0 pg (27.0-33.0); Mean Corpuscular Volume 92.0 fL (80.0-98.0); NRBC Abs Auto 0.000 X10*3/uL (0.0-0.012); NRBC Pct Auto 0.0 /100WBC (0.0-0.2); Platelet Count 213 X10*3/uL (160-400); Red Blood Count 4.24 X10*6/uL (4.60-5.80); White Blood Count 9.3 X10*3/uL (4.8-10.8)
[2025-09-05 07:42] LABS: Alanine Aminotransferase 10 U/L (0-40); Albumin Level 3.3 g/dL (3.5-5.0); Alkaline Phosphatase 58 U/L (39-117); Anion Gap 9 (12-20); Aspartate Amino Transferase 21 U/L (5-37); Blood Urea Nitrogen 14 mg/dL (9-16); Calcium 8.8 mg/dL (8.4-10.2); Carbon Dioxide 24 mmol/L (22-29); Chloride 111 mmol/L (96-108); Estimated Glomerular Filt Rate > 60; Potassium 4.0 mmol/L (3.3-5.1); Sodium 140 mmol/L (135-145); Total Protein 6.0 g/dL (6.5-8.0)
== END 2025-09-05 05:56 | disposition home or self-care (01) ==
LOC: HO.MMNH3L 05:55
PROVIDERS: Visit Provider Physician Assistant Medical
DX: E11.9 Type 2 diabetes mellitus without complications (principal)
CPT/HCPCS: 36415; 80053; 85025

== ENCOUNTER 2025-10-22 09:33 | Outpatient (REF) | payer MEDICARE, MEDICAID, SELFPAY ==
[2025-10-22 09:36] LABS: MANUAL DIFF FLAG NO
[2025-10-22 09:51] LABS: Hematocrit 40.0 % (42.0-52.0); Hemoglobin 12.9 g/dl (14.0-18.0); Imm Gran Abs Auto 0.05 X10*3/uL (0.00-0.03); Imm Gran Pct Auto 0.5 % (0.0-0.4); Lymphocytes Absolute Auto 1.9 X10*3/uL (1.2-4.9); Mean Corpuscular HGB Conc 32.3 g/dl (31.0-36.0); Mean Corpuscular Hemoglobin 30.1 pg (27.0-33.0); Mean Corpuscular Volume 93.5 fL (80.0-98.0); NRBC Abs Auto 0.000 X10*3/uL (0.0-0.012); NRBC Pct Auto 0.0 /100WBC (0.0-0.2); Platelet Count 201 X10*3/uL (160-400); Red Blood Count 4.28 X10*6/uL (4.60-5.80); White Blood Count 9.7 X10*3/uL (4.8-10.8)
[2025-10-22 10:08] LABS: Anion Gap 8 (12-20); Blood Urea Nitrogen 13 mg/dL (9-16); Calcium 8.7 mg/dL (8.4-10.2); Carbon Dioxide 25 mmol/L (22-29); Chloride 111 mmol/L (96-108); Estimated Glomerular Filt Rate > 60; Potassium 4.1 mmol/L (3.3-5.1); Sodium 140 mmol/L (135-145)
--- OUTSIDE RECORDS SUMMARY | 2025-10-22 10:10 | XMS_ITS | Encounter Summary ---
Author Organization [facility] Address [address] [place] [address] [place] [address] Phone Care Team Providers Care Wood Sawyer Name Role Phone Gabriella Polo MD Primary Care Provider Devin Balbuena DO Unavailable [phone] Maria M Kaur GLASS DEPOSITION TENDER Unavailable [phone] Encounter Details Date Type Department Care Team (Latest Contact Info) Description 04/04/2021 Transcribe Orders Virtual Department [address] [place] [address] Kevin Russell MD [address] [place] [address], [address] [place] [address] [email or web address] Cerebrovascular accident (CVA), unspecified mechanism (Primary [...] [facility] QTC Interval 440 ms [facility] P [place] 40 degrees [facility] R Wave [place] -4 degrees [facility] T Wave [place] 98 degrees [facility] 04/10/2021 11:3 8 AM [...] type documented in this encounter Care Teams Wood Sawyer Relationship Specialty Start Date End Date Gabriella Polo MD [address] [place] [address] PCP - General 12/29/18 Devin Balbuena DO [address] [place] [address] [email or web address] Primary Oncologist Hematology and Oncology 05/12/21 Maria M Kaur NP [address] [place] [address] [email or web address] Nurse Practitioner Hematology and Oncology 05/23/21 documented as of this encounter Additional Source Comments The information contained in this document represents components of the legal health record. It is not the complete legal health record.[facility]
--- OUTSIDE RECORDS SUMMARY | 2025-10-22 10:10 | XMS_ITS | Encounter Summary ---
Author Organization [facility] Address [address] [place] [address] Phone Care Team Providers Care Fire Loss Prevention Engineer Name Role Phone Gabriella Polo MD Primary Care Provider Devin Balbuena DO Unavailable [phone] Maria M Kaur IMMIGRATION MANAGER Unavailable [phone] Encounter Details Date Type Department Care Team (Late st Contact Info) Description 07/07/2021 Procedure Pass [facility] Endoscopy Admitting Dept Virtual Department [address] [place] [address] Social History Tobacco Use Types Packs/Day Years [...] on filedocumented in this encounter Care Teams Fire Loss Prevention Engineer Relationship Specialty Start Date End Date Gabriella Polo MD [address] [place] [address] PCP - General 12/29/18 Devin Balbuena DO [address] [place] [address] [email or web address] Primary Oncologist Hematology and Oncology 05/12/21 Maria M Kaur NP [address] [place] [address] [email or web address] Nurse Practitioner Hematology and Oncology 05/23/21 documented as of this encounter Additional Source Comments The information contained in this document represents components of the legal health record. It is not the complete legal health record.[facility]
--- OUTSIDE RECORDS SUMMARY | 2025-10-22 10:10 | XMS_ITS | Encounter Summary ---
Author Organization [facility] Address [address] [place] [address] [place] [address] Phone Care Team Providers Care Cost Control Supervisor Name Role Phone Gabriella Polo MD Primary Care Provider Devin Balbuena DO Unavailable [phone] Maria M Kaur NUCLEAR OPERATIONS SPECIALIST Unavailable [phone] Reason for Referral * MRI/CAT Scan - Closed Specialty Diagnoses / Procedures Referred By Juan Pablo tate Referred To Contact Radiology Diagnoses Left-sided weakness Ataxia Cerebrovascular accident (CVA), unspecified mechanism Procedures MRI Brain Kevin Russell MD Phone: tel: fax: [email or web address] Referral ID Status Reason Start Date Expiration Date Visits Re quested Visits Authorized [id number] Closed 03/18/2021 03/18/2022 1 1 Encounter Details Date Type Department Care Team (Latest Contact Info) Description 03/18/2021 Transcribe Orders Virtual Department [address] [place] [address] Kevin Russell MD [address] [place] [address], [address] [place] [address] [email or web address] [employer] TIA (transient ischemic attack) (Primary Dx); Left-sided [...] intracranial hemorrhage or acute infarcts. Traces of [id number] signal in the periventricular white matter consistent [...] ischemia documented in this encounter Care Teams Cost Control Supervisor Relationship Specialty Start Date End Date Gabriella Polo MD [address] [place] [address] PCP - General 12/29/18 Devin Balbuena DO [address] [place] [address] [email or web address] Primary Oncologist Hematology and Oncology 05/12/21 Maria M Kaur NP [address] [place] [address] Nurse Practitioner Hematology and Oncology 05/23/21 documented as of this encounter Additional Source Comments The information contained in this document represents components of the legal health record. It is not the complete legal health record.[facility]
--- OUTSIDE RECORDS SUMMARY | 2025-10-22 10:10 | XMS_ITS | Encounter Summary ---
Author Organization [facility] Address [address] [facility] [address] [place] [address] Phone Care Team Providers Care Ore Crusher Name Role Phone Gabriella Polo MD Primary Care Provider Devin Balbuena DO Unavailable [phone] Maria M Kaur MINERALOGY TEACHER Unavailable [phone] Encounter Details Date Type Department Care Team (Late st Contact Info) Description 09/29/2021 Transcribe Orders [facility] [address] [place] [address] Rashid Fallon MD [address] [place] [address] [email or web address] Social History Tobacco Use Types Packs/Day Years [...] on filedocumented in this encounter Care Teams Ore Crusher Relationship Specialty Start Date End Date Gabriella Polo MD [address] [place] [address] PCP - General 12/29/18 Devin Balbuena DO [address] [place] [address] [email or web address] Primary Oncologist Hematology and Oncology 05/12/21 Maria M Kaur NP [address] [place] [address] [email or web address] Nurse Practitioner Hematology and Oncology 05/23/21 documented as of this encounter Additional Source Comments The information contained in this document represents components of the legal health record. It is not the complete legal health record.[facility]
--- OUTSIDE RECORDS SUMMARY | 2025-10-22 10:10 | XMS_ITS | Encounter Summary ---
Author Organization [facility] Address [address] [place] [address] [place] [address] Phone Care Team Providers Care Space Studies Faculty Member Name Role Phone Gabriella Polo MD Primary Care Provider Devin Balbuena DO Unavailable [phone] Maria M Kaur CLIENT ACCOUNT REPRESENTATIVE Unavailable [phone] Encounter Details Date Type Department Care Team (Late st Contact Info) Description 07/04/2021 Procedure Pass [facility], Ct Scan - [address] [address] Social History Tobacco Use Types Packs/Day Years [...] on filedocumented in this encounter Care Teams Space Studies Faculty Member Relationship Specialty Start Date End Date Gabriella Polo MD [address] [place] [address] PCP - General 12/29/18 Devin Balbuena DO [address] [place] [address] [email or web address] Primary Oncologist Hematology and Oncology 05/12/21 Maria M Kaur NP [address] [place] [address] [email or web address] Nurse Practitioner Hematology and Oncology 05/23/21 documented as of this encounter Additional Source Comments The information contained in this document represents components of the legal health record. It is not the complete legal health record.[facility]
--- OUTSIDE RECORDS SUMMARY | 2025-10-22 10:10 | XMS_ITS | Encounter Summary ---
Author Organization [facility] Address [address] [place] [address] Phone Care Team Providers Care Coding Specialist Name Role Phone Gabriella Polo MD Primary Care Provider Devin Balbuena DO Unavailable [phone] Maria M Kaur YARD ASSOCIATE Unavailable [phone] Encounter Details Date Type Department Care Team (Late st Contact Info) Description 03/18/2021 Procedure Pass [facility], [address] [address] Social History Tobacco Use Types Packs/Day Years [...] on filedocumented in this encounter Care Teams Coding Specialist Relationship Specialty Start Date End Date Gabriella Polo MD [address] [place] [address] PCP - General 12/29/18 Devin Balbuena DO [address] [place] [address] [email or web address] Primary Oncologist Hematology and Oncology 05/12/21 Maria M Kaur NP [address] [place], [place] [id number] [email or web address] Nurse Practitioner Hematology and Oncology 05/23/21 documented as of this encounter Additional Source Comments The information contained in this document represents components of the legal health record. It is not the complete legal health record.[facility]
--- OUTSIDE RECORDS SUMMARY | 2025-10-22 10:10 | XMS_ITS | Encounter Summary ---
Author Organization [facility] Address [address] [place] [address] Phone Care Team Providers Care Heavy Equipment Engine Mechanic Name Role Phone Gabriella Polo MD Primary Care Provider Devin Balbuena DO Unavailable [phone] Maria M Kaur [facility] Unavailable [phone] Encounter Details Date Type Department Care Team (Late st Contact Info) Description 07/06/2021 Procedure Pass [facility] [address] [place] [address] Social History Tobacco Use Types Packs/Day Years [...] on filedocumented in this encounter Care Teams Heavy Equipment Engine Mechanic Relationship Specialty Start Date End Date Gabriella Polo MD [address] [place] [address] PCP - General 12/29/18 Devin Balbuena DO [address] [place] [address] [email or web address] Primary Oncologist Hematology and Oncology 05/12/21 Maria M Kaur NP [address] [place] [address] [email or web address] Nurse Practitioner Hematology and Oncology 05/23/21 documented as of this encounter Additional Source Comments The information contained in this document represents components of the legal health record. It is not the complete legal health record.[facility]
--- OUTSIDE RECORDS SUMMARY | 2025-10-22 10:10 | XMS_ITS | Encounter Summary ---
Author Organization [facility] Address [address] [facility] [address] [place] [address] Phone Care Team Providers Care Foam Charger Name Role Phone Gabriella Polo MD Primary Care Provider Devin Balbuena DO Unavailable [phone] Maria M Kaur CLAM PICKER Unavailable [phone] Encounter Details Date Type Department Care Team (Late st Contact Info) Description 06/18/2021 Transcribe Orders [address] [address] Devin Balbuena DO [address] [place] [address] [email or web address] Social History Tobacco Use Types Packs/Day Years [...] on filedocumented in this encounter Care Teams Foam Charger Relationship Specialty Start Date End Date Gabriella Polo MD [address] [place] [id number] PCP - General 12/29/18 Devin Balbuena DO 30 [place] [address] [email or web address] Primary Oncologist Hematology and Oncology 05/12/21 Maria M Kaur NP [address] [place] [address] [email or web address] Nurse Practitioner Hematology and Oncology 05/23/21 documented as of this encounter Additional Source Comments The information contained in this document represents components of the legal health record. It is not the complete legal health record.[facility]
--- OUTSIDE RECORDS SUMMARY | 2025-10-22 10:10 | XMS_ITS | Clinical Summary ---
Author Organization [facility] Address [address] [place] [address] [place] [address] Phone Care Team Providers Care Active Directory Engineer Name Role Phone Gabriella Polo MD Primary Care Provider Devin Balbuena DO Unavailable [phone] Maria M Kaur INSTRUMENT AND CONTROLS TECHNICIAN Unavailable [phone] Allergies No known active allergies Medications [...] RECOMMENDATION: Await additional serologies, including MPO antibody, WI-3 antibody, ANCA and anti-GBM antibody. 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 Rheumatoid factor is slightly elevated at 15.3. [...] and metoprolol were confirmed with his pharmacy, [facility] in [place]. Reasonable control --Continue lisinopril and metoprolol per [...] Preservative Free IM 07/08/2021(Deferred: Not Available From Beaming Machine Operator) Tdap 12/30/2018 Zoster live 01/12/2014 Social History [...] EDT) SODIUM 137 133 - 146 mmol/L [facility] POTASSIUM 4.4 3.3 - 5.1 mmol/L [facility] CHLORIDE 101 96 - 108 mmol/L [facility] CO2 25 21 - 35 mmol/L [facility] BUN 16 6 - 19 mg/dL [facility] CREATININE 0.90 0.5 - 1.5 mg/dL [facility] GLUCOSE 108(H) 70 - 99 mg/dL [facility] ALBUMIN 3.0(L) 3.9 - 4.8 g/dL [facility] TOTAL PROTEIN 5.7(L) 6.5 - 8.0 g/dL [facility] CALCIUM 8.9 8.4 - 10.3 mg/dL [facility] ALKALINE PHOSPHATASE 104 39 - 117 U/L [facility] TOTAL BILIRUBIN 0.3 0.0 - 1.2 mg/dL [facility] AST 24 0 - 37 U/L [facility] ALT 27 0 - 40 U/L [facility] GLOBULIN 2.7 1 - 4.8 g/dL [facility] EGFR 87 >59 mL/min/1.7 3m2 [facility] Comment:Estimated glomerular filtration rate calculated using the CKD-EPI equation. ANION GAP 15 10 - 20 mmol/L [facility] Blood 07/31/2021 6:00 AM EDT 07/31/2021 7:46 AM EDT us Jose Blanca MD LAB BLOOD BKR ORDERABLES Final R esult Performing Organization Address City/[facility]/ZIP Co de Phone Number [address] [address] * Hemoglobin A1c (07/05/2021 5:25 AM EDT) HEMOGLOBIN A1C 5.7 4.3 - 5.8 % [facility] Blood 07/05/2021 5:25 AM EDT 07/05/2021 6:03 AM EDT us Cezar Lyn DO LAB BLOOD BKR ORDERABLES Rosa l Result Performing Organization Address [facility] Co de Phone Number [address] [address] from Last 3 Months or Most Recently Relevant to Health Maintenance Insurance MEDICARE PART A & B [facility] MEDICARE SUPPLEMENT MEDICARE PART A & B [facility] MEDICARE SUPPLEMENT MEDICARE PART A & B [facility] MEDICARE SUPPLEMENT MEDICARE PART A & B [facility] MEDICARE SUPPLEMENT MEDICARE PART A & B [facility] MEDICARE SUPPLEMENT [facility] Address: [facility] [facility] [address] [place] [phone] MEDICARE PART A & B [facility] MEDICARE SUPPLEMENT MEDICARE PART A & B MEDICARE SUPPLEMENT MEDICARE PART A & B [id number] [place] [address] MEDICARE SUPPLEMENT MEDICARE PART A & B [facility] MEDICARE SUPPLEMENT Advance Directives For more information, please contact: [phone] (9AM - 5PM [facility], Wednesday-Wednesday) * Full Code (Latest Code Status on File) Date Activated Date Inactivated Comments 07/05/2021 2:19 AM Question Answer Comments Code Status Confirmed With: Patient Care Teams Active Directory Engineer Relationship Specialty Start Date End Date Gabriella Polo MD [address] [place] [address] PCP - General 12/29/18 Devin Balbuena DO [address] [place] [address] [email or web address] Primary Oncologist Hematology and Oncology 05/12/21 Maria M Kaur NP [address] [place] [address] [email or web address] Nurse Practitioner Hematology and Oncology 05/23/21 Additional Source Comments The information contained in this document represents components of the legal health record. It is not the complete legal health record.[facility]
== END 2025-10-22 09:34 ==
LOC: HO.MMNH3L 09:33
PROVIDERS: Visit Provider Physician Assistant Medical
DX: E11.9 Type 2 diabetes mellitus without complications (principal); J44.9 Chronic obstructive pulmonary disease, unspecified; G89.29 Other chronic pain
CPT/HCPCS: 36415; 80048; 85025